=== PATIENT | male | born 1985 | race Caucasian/White ===

== ENCOUNTER 2022-09-17 04:48 | Inpatient (IN) | payer OTHER, SELFPAY ==
[2022-09-17] VITALS (22 sets, daily range): BP systolic 157–195; BP diastolic 91–119; PULSE 53–77; RESP 17–20; TEMP 36.6–37.4; O2SAT 95–100; BMI 26.9
--- NOTE | 2022-09-17 04:50 | ED.GENADULT ---
HPI - General Adult <Contreras DO Javid - Last Filed: 09/19/22 10:24> General Chief complaint: Abdominal Pain Stated complaint: ABD Pain Time Seen by Provider: 09/17/22 04:49 History of Present Illness HPI narrative: 36-year-old male nonsmoker with occasional alcohol use presents with the chief complaint of relatively sudden onset but worsening epigastric and right upper quadrant pain with radiation to the back. He states it is worse with motion, eating and drinking and improves with rest. He is nauseated but denies any vomiting. He denies constipation but has had some loose stools. He denies any fever or chills. Denies any history of the same. He denies any prior surgeries in his abdomen. Related Data Previous Rx's Medication Instructions Recorded lisinopril 20 mg tablet 20 mg PO DAILY 90 days #90 tabs 09/19/22 omeprazole 20 mg capsule,delayed 40 mg PO DAILY #60 caps 09/19/22 release Allergies Allergy/AdvReac Type Severity Reaction Status Date / Time No Known Drug Allergies Allergy Verified 09/18/22 14:58 Review of Systems <Contreras Hua DO - Last Filed: 09/19/22 10:24> Review of Systems Narrative: GENERAL: Denies chills, fatigue, malaise, fever, sweats. HEENT: Denies sinus pain, ear pain, sore throat, difficulty swallowing, dizziness. RESPIRATORY: Denies dyspnea, cough, wheezing, hemoptysis, sputum. CARDIOVASCULAR: Denies chest pain, palpitations, orthopnea, edema, GASTROINTESTINAL: See HPI : Denies dysuria, frequency, incontinence, hematuria, urinary retention. MUSCULOSKELETAL: denies weakness, joint pain, or bony pain SKIN: Denies rash, skin lesions, or other NEUROLOGIC: Denies weakness, headache, numbness, change in speech, confusion, seizures, incoordination. PSYCHIATRIC: No concerning psychosocial issues. 12 point review of systems is negative except for those stated above Patient History <Contreras Hua DO - Last Filed: 09/19/22 10:24> Medical History (Updated 09/17/22 @ 12:34 by Mary Avalos MD) Duodenal ulcer GERD (gastroesophageal reflux disease) Gout Hypertension Family History (Updated 09/17/22 @ 13:04 by Mary Avalos MD) Father Hypertension Gout Mother Rheumatoid arthritis Family/Other Cancer Social History household members: significant other and family Smoking Status: Current every day smoker alcohol intake: current Smoking Status: Unknown if ever smoked Exam <Contreras Hua DO - Last Filed: 09/19/22 10:24> Narrative Exam Narrative: GENERAL: [36] year old patient appears stated age. Well-developed patient, in mild distress. HEAD: Atraumatic. Normocephalic. EYES: Pupils equal round and reactive. Extraocular motions intact. No scleral icterus. No injection or drainage. ENT: Nose without bleeding, purulent drainage. Throat without erythema, tonsillar hypertrophy or exudate. Airway patent. NECK: Trachea midline. Non tender CARDIOVASCULAR: Regular rate and rhythm without murmurs, gallops, or rubs. RESPIRATORY: Clear to auscultation. Breath sounds equal bilaterally. No wheezes, rales, or rhonchi. GASTROINTESTINAL: Abdomen soft, tender in the epigastrium and right upper quadrant, nondistended. EXTREMITIES: No edema or joint tenderness. BACK: Nontender without deformity or crepitance. No flank tenderness. NEURO: AOx3. SKIN: No rash or erythema of visible areas Initial Vital Signs Initial Vital Signs: Vital Signs Temperature 99.4 F 09/17/22 04:57 Pulse Rate 77 09/17/22 04:57 Respiratory Rate 18 09/17/22 04:57 Blood Pressure 173/113 H 09/17/22 04:57 Pulse Oximetry 99 09/17/22 04:57 Oxygen Delivery Method Room Air 09/17/22 04:57 <Brandon Marcano DO - Last Filed: 09/17/22 10:59> Initial Vital Signs Initial Vital Signs: Vital Signs Temperature 99.4 F 09/17/22 04:57 Pulse Rate 77 09/17/22 04:57 Respiratory Rate 18 09/17/22 04:57 Blood Pressure 173/113 H 09/17/22 04:57 Pulse Oximetry 99 09/17/22 04:57 Oxygen Delivery Method Room Air 09/17/22 04:57 Course <Contreras Hua DO - Last Filed: 09/19/22 10:24> Orders Ordered: Acetaminophen (Acetaminophen 325 Mg Tablet) 650 mg PO Q6H PRN PRN Reason: Fever/Mild Pain (1-3) Last Admin: 09/19/22 06:13 Dose: 650 mg Documented By: Admin: 09/17/22 16:27 Dose: 650 mg Documented By: LOUIE Albuterol (Albuterol 2.5 Mg/3 Ml Neb (Adult)) 2.5 mg INH NOW PRN PRN Reason: Coughing, Wheezing, Dyspnea Hydralazine HCl (Hydralazine 20 Mg/Ml Vial) 5 mg IV Q6HR PRN PRN Reason: SBP>180 or DBP>110 Hydromorphone HCl (Hydromorphone 0.5 Mg Inj) 0.5 mg IV Q2H PRN PRN Reason: Pain, Severe (7-10) Last Admin: 09/18/22 12:31 Dose: 0.5 mg Documented By: Admin: 09/18/22 10:34 Dose: 0.5 mg Documented By: Admin: 09/18/22 07:24 Dose: 0.5 mg Documented By: Admin: 09/18/22 02:56 Dose: 0.5 mg Documented By: Admin: 09/17/22 22:46 Dose: 0.5 mg Documented By: Admin: 09/17/22 20:32 Dose: 0.5 mg Documented By: Admin: 09/17/22 18:08 Dose: 0.5 mg Documented By: Admin: 09/17/22 15:05 Dose: 0.5 mg Documented By: Admin: 09/17/22 12:58 Dose: 0.5 mg Documented By: Admin: 09/17/22 09:57 Dose: 0.5 mg Documented By: ALISHA Lisinopril (Lisinopril 20 Mg Tablet) 20 mg PO DAILY [facility] Last Admin: 09/19/22 08:21 Dose: 20 mg Documented By: Admin: 09/18/22 09:41 Dose: 20 mg Documented By: ELICEO Naloxone HCl (Naloxone 0.4 Mg/Ml Vial) 0.2 mg IV Q2MIN PRN PRN Reason: Opiate Reversal Ondansetron HCl (Ondansetron 4 Mg/2 Ml Inj) 4 mg IV Q8HR PRN PRN Reason: Nausea And Vomiting Oxycodone HCl (Oxycodone Ir 5 Mg Tablet) 5 mg PO Q4HR PRN PRN Reason: Pain, Moderate (4-6) Last Admin: 09/19/22 06:13 Dose: 5 mg Documented By: Admin: 09/18/22 19:01 Dose: 5 mg Documented By: TLS Pantoprazole Sodium (Pantoprazole Dr 40 Mg Tablet) 40 mg PO 0700,2100 [facility] Last Admin: 09/19/22 06:10 Dose: 40 mg Documented By: Admin: 09/18/22 21:07 Dose: 40 mg Documented By: AM Discontinued Medications Hydralazine HCl (Hydralazine 20 Mg/Ml Vial) 5 mg IV NOW ONE Stop: 09/17/22 12:30 Last Admin: 09/17/22 12:53 Dose: 5 mg Documented By: TLS Hydralazine HCl (Hydralazine 20 Mg/Ml Vial) 5 mg IV Q6HR PRN PRN Reason: SBP>160 or DBP>100 Last Admin: 09/17/22 18:25 Dose: 5 mg Documented By: LOUIE Hydromorphone HCl (Hydromorphone 0.5 Mg Inj) 0.5 mg IV NOW ONE Stop: 09/17/22 04:57 Last Admin: 09/17/22 05:08 Dose: 0.5 mg Documented By: ENEIDA Hydromorphone HCl (Hydromorphone 0.5 Mg Inj) 0.5 mg IV NOW ONE Stop: 09/17/22 08:09 Last Admin: 09/17/22 08:20 Dose: 0.5 mg Documented By: CTS Sodium Chloride (Normal Saline 0.9%) 1,000 mls @ 1,000 mls/hr IV BOLUS ONE Stop: 09/17/22 05:55 Last Infusion: 09/17/22 05:49 Dose: 0 mls/hr Documented By: Admin: 09/17/22 05:09 Dose: 1,000 mls/hr Documented By: ENEIDA Sodium Chloride (Normal Saline 0.9%) 1,000 mls @ 100 mls/hr IV CONT DANELLE Last Infusion: 09/18/22 14:50 Dose: 0 mls/hr Documented By: Infusion: 09/18/22 12:17 Dose: 100 mls/hr Documented By: Infusion: 09/18/22 11:29 Dose: 0 mls/hr Documented By: Admin: 09/18/22 07:25 Dose: 100 mls/hr Documented By: Infusion: 09/18/22 06:34 Dose: 100 mls/hr Documented By: Admin: 09/17/22 20:34 Dose: 100 mls/hr Documented By: Infusion: 09/17/22 20:32 Dose: 100 mls/hr Documented By: Admin: 09/17/22 10:32 Dose: 100 mls/hr Documented By: LOUIE Lactated Ringer's (Lactated Ringers) 1,000 mls @ 84 mls/hr IV NOW ONE Stop: 09/19/22 03:01 Last Infusion: 09/18/22 16:47 Dose: 0 mls/hr Documented By: Admin: 09/18/22 15:07 Dose: 84 mls/hr Documented By: DEONDRE Lisinopril (Lisinopril 20 Mg Tablet) 20 mg PO NOW ONE Stop: 09/17/22 14:06 Last Admin: 09/17/22 15:02 Dose: 20 mg Documented By: LOUIE Ondansetron HCl (Ondansetron 4 Mg/2 Ml Inj) 4 mg IV NOW ONE Stop: 09/17/22 04:57 Last Admin: 09/17/22 05:09 Dose: 4 mg Documented By: ENEIDA Pantoprazole Sodium (Pantoprazole 40 Mg Vial) 40 mg IV NOW ONE Stop: 09/17/22 08:09 Last Admin: 09/17/22 08:19 Dose: 40 mg Documented By: RAGHAV Pantoprazole Sodium (Pantoprazole 40 Mg Vial) 40 mg IV BID [facility] Last Admin: 09/18/22 09:41 Dose: 40 mg Documented By: Admin: 09/17/22 20:32 Dose: 40 mg Documented By: GREG Potassium Chloride (Potassium Chloride 20 Meq Tab) 40 meq PO NOW ONE Stop: 09/18/22 06:44 Last Admin: 09/18/22 07:21 Dose: 40 meq Documented By: GREG Vital Signs Vital signs: Vital Signs - 8 hr 09/17/22 04:57 09/17/22 05:08 09/17/22 05:08 Temperature 99.4 F Pulse Rate 77 66 Respiratory Rate 18 Blood Pressure 173/113 H 194/116 H Pulse Oximetry 99 96 Oxygen Delivery Method Room Air 09/17/22 05:30 09/17/22 05:30 09/17/22 06:00 Temperature Pulse Rate 60 Respiratory Rate Blood Pressure 157/99 H 194/116 H Pulse Oximetry 97 Oxygen Delivery Method 09/17/22 06:00 09/17/22 06:30 09/17/22 06:30 Temperature Pulse Rate 60 64 Respiratory Rate Blood Pressure 171/101 H Pulse Oximetry 98 98 Oxygen Delivery Method 09/17/22 07:00 09/17/22 07:00 09/17/22 07:30 Temperature Pulse Rate 63 Respiratory Rate Blood Pressure 191/116 H 195/113 H Pulse Oximetry 97 Oxygen Delivery Method 09/17/22 07:30 09/17/22 08:00 09/17/22 08:01 Temperature Pulse Rate 58 L 62 57 L Respiratory Rate Blood Pressure Pulse Oximetry 97 97 97 Oxygen Delivery Method 09/17/22 08:01 09/17/22 08:30 09/17/22 08:30 Temperature Pulse Rate 55 L Respiratory Rate Blood Pressure 180/117 H 183/103 H Pulse Oximetry 95 Oxygen Delivery Method 09/17/22 09:00 09/17/22 09:00 Temperature Pulse Rate 56 L Respiratory Rate Blood Pressure 175/114 H Pulse Oximetry 95 Oxygen Delivery Method <Brandon Marcano, - Last Filed: 09/17/22 10:59> Orders Ordered: Acetaminophen (Acetaminophen 325 Mg Tablet) 650 mg PO Q6H PRN PRN Reason: Fever/Mild Pain (1-3) Last Admin: 09/19/22 06:13 Dose: 650 mg Documented By: Admin: 09/17/22 16:27 Dose: 650 mg Documented By: VM Albuterol (Albuterol 2.5 Mg/3 Ml Neb (Adult)) 2.5 mg INH NOW PRN PRN Reason: Coughing, Wheezing, Dyspnea Hydralazine HCl (Hydralazine 20 Mg/Ml Vial) 5 mg IV Q6HR PRN PRN Reason: SBP>180 or DBP>110 Hydromorphone HCl (Hydromorphone 0.5 Mg Inj) 0.5 mg IV Q2H PRN PRN Reason: Pain, Severe (7-10) Last Admin: 09/18/22 12:31 Dose: 0.5 mg Documented By: Admin: 09/18/22 10:34 Dose: 0.5 mg Documented By: Admin: 09/18/22 07:24 Dose: 0.5 mg Documented By: Admin: 09/18/22 02:56 Dose: 0.5 mg Documented By: Admin: 09/17/22 22:46 Dose: 0.5 mg Documented By: Admin: 09/17/22 20:32 Dose: 0.5 mg Documented By: Admin: 09/17/22 18:08 Dose: 0.5 mg Documented By: Admin: 09/17/22 15:05 Dose: 0.5 mg Documented By: Admin: 09/17/22 12:58 Dose: 0.5 mg Documented By: Admin: 09/17/22 09:57 Dose: 0.5 mg Documented By: ALISHA Lisinopril (Lisinopril 20 Mg Tablet) 20 mg PO DAILY [facility] Last Admin: 09/19/22 08:21 Dose: 20 mg Documented By: Admin: 09/18/22 09:41 Dose: 20 mg Documented By: ELICEO Naloxone HCl (Naloxone 0.4 Mg/Ml Vial) 0.2 mg IV Q2MIN PRN PRN Reason: Opiate Reversal Ondansetron HCl (Ondansetron 4 Mg/2 Ml Inj) 4 mg IV Q8HR PRN PRN Reason: Nausea And Vomiting Oxycodone HCl (Oxycodone Ir 5 Mg Tablet) 5 mg PO Q4HR PRN PRN Reason: Pain, Moderate (4-6) Last Admin: 09/19/22 06:13 Dose: 5 mg Documented By: Admin: 09/18/22 19:01 Dose: 5 mg Documented By: JATIN Pantoprazole Sodium (Pantoprazole Dr 40 Mg Tablet) 40 mg PO 0700,2100 [facility] Last Admin: 09/19/22 06:10 Dose: 40 mg Documented By: Admin: 09/18/22 21:07 Dose: 40 mg Documented By: AM Discontinued Medications Hydralazine HCl (Hydralazine 20 Mg/Ml Vial) 5 mg IV NOW ONE Stop: 09/17/22 12:30 Last Admin: 09/17/22 12:53 Dose: 5 mg Documented By: TLS Hydralazine HCl (Hydralazine 20 Mg/Ml Vial) 5 mg IV Q6HR PRN PRN Reason: SBP>160 or DBP>100 Last Admin: 09/17/22 18:25 Dose: 5 mg Documented By: LOUIE Hydromorphone HCl (Hydromorphone 0.5 Mg Inj) 0.5 mg IV NOW ONE Stop: 09/17/22 04:57 Last Admin: 09/17/22 05:08 Dose: 0.5 mg Documented By: ENEIDA Hydromorphone HCl (Hydromorphone 0.5 Mg Inj) 0.5 mg IV NOW ONE Stop: 09/17/22 08:09 Last Admin: 09/17/22 08:20 Dose: 0.5 mg Documented By: RAGHAV Sodium Chloride (Normal Saline 0.9%) 1,000 mls @ 1,000 mls/hr IV BOLUS ONE Stop: 09/17/22 05:55 Last Infusion: 09/17/22 05:49 Dose: 0 mls/hr Documented By: Admin: 09/17/22 05:09 Dose: 1,000 mls/hr Documented By: ENEIDA Sodium Chloride (Normal Saline 0.9%) 1,000 mls @ 100 mls/hr IV CONT DANELLE Last Infusion: 09/18/22 14:50 Dose: 0 mls/hr Documented By: Infusion: 09/18/22 12:17 Dose: 100 mls/hr Documented By: Infusion: 09/18/22 11:29 Dose: 0 mls/hr Documented By: Admin: 09/18/22 07:25 Dose: 100 mls/hr Documented By: Infusion: 09/18/22 06:34 Dose: 100 mls/hr Documented By: Admin: 09/17/22 20:34 Dose: 100 mls/hr Documented By: Infusion: 09/17/22 20:32 Dose: 100 mls/hr Documented By: Admin: 09/17/22 10:32 Dose: 100 mls/hr Documented By: LOUIE Lactated Ringer's (Lactated Ringers) 1,000 mls @ 84 mls/hr IV NOW ONE Stop: 09/19/22 03:01 Last Infusion: 09/18/22 16:47 Dose: 0 mls/hr Documented By: Admin: 09/18/22 15:07 Dose: 84 mls/hr Documented By: DEONDRE Lisinopril (Lisinopril 20 Mg Tablet) 20 mg PO NOW ONE Stop: 09/17/22 14:06 Last Admin: 09/17/22 15:02 Dose: 20 mg Documented By: LOUIE Ondansetron HCl (Ondansetron 4 Mg/2 Ml Inj) 4 mg IV NOW ONE Stop: 09/17/22 04:57 Last Admin: 09/17/22 05:09 Dose: 4 mg Documented By: ENEIDA Pantoprazole Sodium (Pantoprazole 40 Mg Vial) 40 mg IV NOW ONE Stop: 09/17/22 08:09 Last Admin: 09/17/22 08:19 Dose: 40 mg Documented By: RAGHAV Pantoprazole Sodium (Pantoprazole 40 Mg Vial) 40 mg IV BID DANELLE Last Admin: 09/18/22 09:41 Dose: 40 mg Documented By: Admin: 09/17/22 20:32 Dose: 40 mg Documented By: GREG Potassium Chloride (Potassium Chloride 20 Meq Tab) 40 meq PO NOW ONE Stop: 09/18/22 06:44 Last Admin: 09/18/22 07:21 Dose: 40 meq Documented By: GREG Vital Signs Vital signs: Vital Signs - 8 hr 09/17/22 04:57 09/17/22 05:08 09/17/22 05:08 Temperature 99.4 F Pulse Rate 77 66 Respiratory Rate 18 Blood Pressure 173/113 H 194/116 H Pulse Oximetry 99 96 Oxygen Delivery Method Room Air 09/17/22 05:30 09/17/22 05:30 09/17/22 06:00 Temperature Pulse Rate 60 Respiratory Rate Blood Pressure 157/99 H 194/116 H Pulse Oximetry 97 Oxygen Delivery Method 09/17/22 06:00 09/17/22 06:30 09/17/22 06:30 Temperature Pulse Rate 60 64 Respiratory Rate Blood Pressure 171/101 H Pulse Oximetry 98 98 Oxygen Delivery Method 09/17/22 07:00 09/17/22 07:00 09/17/22 07:30 Temperature Pulse Rate 63 Respiratory Rate Blood Pressure 191/116 H 195/113 H Pulse Oximetry 97 Oxygen Delivery Method 09/17/22 07:30 09/17/22 08:00 09/17/22 08:01 Temperature Pulse Rate 58 L 62 57 L Respiratory Rate Blood Pressure Pulse Oximetry 97 97 97 Oxygen Delivery Method 09/17/22 08:01 09/17/22 08:30 09/17/22 08:30 Temperature Pulse Rate 55 L Respiratory Rate Blood Pressure 180/117 H 183/103 H Pulse Oximetry 95 Oxygen Delivery Method 09/17/22 09:00 07/02/23 09:00 Temperature Pulse Rate 56 L Respiratory Rate Blood Pressure 175/114 H Pulse Oximetry 95 Oxygen Delivery Method Medical Decision Making <Contreras Hua DO - Last Filed: 09/19/22 10:24> Lab Data 09/19/22 05:02 09/19/22 05:02 Labs: Lab Results 09/17/22 09/17/22 09/17/22 Range/Units 05:00 05:00 05:00 WBC 14.4 H (4.5-11.0) X10^3/uL RBC 4.76 (4.5-5.9) X10^6/uL Hgb 15.9 (13.5-17.5) g/dL Hct 45.5 (41-53) % MCV 95.5 (80-100) fL MCH 33.3 (26-34) PG MCHC 34.9 (30-36) % RDW 13.1 (11.6-14.8) % Plt Count 196 (150-400) X10^3/uL Neut % (Auto) Not Reportable Lymph % (Auto) Not Reportable [place] % (Auto) Not Reportable Eos % (Auto) Not Reportable Baso % (Auto) Not Reportable Lymph # (Auto) Not Reportable [place] # (Auto) Not Reportable Baso # (Auto) Not Reportable Total Counted 100 Seg Neutrophils % 86.0 H (38-70) % Band Neutrophils % 1.0 L (3-7) % Lymphocytes % (Manual) 10.0 L (25-45) % Monocytes % (Manual) 2.0 (2-11) % Eosinophils % (Manual) 1.0 L (2-4) % Neutrophils # (Manual) 53414 H (4697-5746) /uL RBC Morphology Normal morphology Sodium 136 L (137-145) mmol/L Potassium 3.8 (3.4-5.1) mmol/L Chloride 104 (98-107) mmol/L Carbon Dioxide 20 L (22-32) mmol/L BUN 15 (9-20) mg/dL Creatinine 0.56 L (0.66-1.25) mg/dL Estimated GFR > 60 (>60) mL/min BUN/Creatinine Ratio 26.8 H (6-22) Glucose 122 H (70-100) mg/dL Calcium 8.4 (8.4-10.2) mg/dL Magnesium 1.6 (1.6-2.3) mg/dL Total Bilirubin 1.2 (0.2-1.3) mg/dL AST 256 H (17-59) IU/L ALT 72 H (<50) IU/L Alkaline Phosphatase 116 (38-126) U/L C-Reactive Protein < 0.5 (<1.0) mg/dL Total Protein 7.7 (6.3-8.2) g/dL Albumin 4.2 (3.5-5.0) g/dL Globulin 3.5 (1.7-4.1) g/dL Albumin/Globulin Ratio 1.2 (1.0-2.8) Lipase 894 H (23-300) U/L Urine RBC (0-5/HPF) Urine WBC (0-5/HPF) Ur Squamous Epith Cells (0-5/HPF) Urine Bacteria (None) Ur Culture Indicated? 09/17/22 Range/Units 05:50 WBC (4.5-11.0) X10^3/uL RBC (4.5-5.9) X10^6/uL Hgb (13.5-17.5) g/dL Hct (41-53) % MCV (80-100) fL MCH (26-34) PG MCHC (30-36) % RDW (11.6-14.8) % Plt Count (150-400) X10^3/uL Neut % (Auto) Lymph % (Auto) [place] % (Auto) Eos % (Auto) Baso % (Auto) Lymph # (Auto) [place] # (Auto) Baso # (Auto) Total Counted Seg Neutrophils % (38-70) % Band Neutrophils % (3-7) % Lymphocytes % (Manual) (25-45) % Monocytes % (Manual) (2-11) % Eosinophils % (Manual) (2-4) % Neutrophils # (Manual) (9698-3536) /uL RBC Morphology Sodium (137-145) mmol/L Potassium (3.4-5.1) mmol/L Chloride (98-107) mmol/L Carbon Dioxide (22-32) mmol/L BUN (9-20) mg/dL Creatinine (0.66-1.25) mg/dL Estimated GFR (>60) mL/min BUN/Creatinine Ratio (6-22) Glucose (70-100) mg/dL Calcium (8.4-10.2) mg/dL Magnesium (1.6-2.3) mg/dL Total Bilirubin (0.2-1.3) mg/dL AST (17-59) IU/L ALT (<50) IU/L Alkaline Phosphatase (38-126) U/L C-Reactive Protein (<1.0) mg/dL Total Protein (6.3-8.2) g/dL Albumin (3.5-5.0) g/dL Globulin (1.7-4.1) g/dL Albumin/Globulin Ratio (1.0-2.8) Lipase (23-300) U/L Urine RBC None seen (0-5/HPF) Urine WBC 0-1/hpf (0-5/HPF) Ur Squamous Epith Cells None seen (0-5/HPF) Urine Bacteria None seen (None) Ur Culture Indicated? Cult not indicated Urine Dip Bedside Urine Glucose Negative Bedside Urine Bilirubin - Negative Bedside Urine Ketone - Negative Urine Specific [place] 1.030 Bedside Urine Occult Blood - Negative Bedside Urine pH 6 Bedside Urine Protein + 30 Bedside Urine Urobilinogen - Negative Bedside Urine Nitrite - Negative Bedside Urine Leukocytes - Negative Esterase Point of care testing: Urine Dip Bedside Urine Glucose Negative Bedside Urine Bilirubin - Negative Bedside Urine Ketone - Negative Urine Specific [place] 1.030 Bedside Urine Occult Blood - Negative Bedside Urine pH 6 Bedside Urine Protein + 30 Bedside Urine Urobilinogen - Negative Bedside Urine Nitrite - Negative Bedside Urine Leukocytes - Negative Esterase MDM Narrative Medical decision making narrative: CC: 36M with epigastric pain Complicating co-morbidities: none known Data collected from: Patient Medical records reviewed: Prior notes reviewed in our EMR Differential considered, but not limited to: Pancreatitis versus gallbladder disease versus liver disease versus bowel obstruction versus other Exam documented above, pertinent findings include: Epigastric pain, right upper quadrant pain, bowel sounds present, patient clearly uncomfortable Lab Test results independently reviewed as above. Pertinent findings: Independently reviewed EKG as above Imaging studies independently reviewed: Disposition: see below, along with detailed discharge instructions that have been reviewed with patient as well as indications for ED re-evaluation and additional outpatient follow up Dr marcano: Received turned over. Review patient's history and physical exam. Patient has a right upper quadrant ultrasound which shows no acute gallbladder pathology however the CT scan does show a duodenal ulcer. Patient also has a leukocytosis. Elevation in his LFTs and also lipase. Could potentially have a pancreatitis component however does not have inflammation of the pancreas noted on the CT scan. Patient's pain has been moderately controlled with pain medication but he does have discomfort whenever he eats or drinks. I did discuss the case with Dr. Avalos. We will admit for further evaluation and treatment. Discussed the case with Dr. Sawyer with General surgery as well. He will see the patient in consultation. Discussed the need for admission with the patient. He expressed understanding and agreement. <Brandon Marcano, DO - Last Filed: 09/17/22 10:59> Lab Data Lab results reviewed: Yes I reviewed the patient's lab results. Labs: Lab Results 09/17/22 09/17/22 09/17/22 Range/Units 05:00 05:00 05:00 WBC 14.4 H (4.5-11.0) X10^3/uL RBC 4.76 (4.5-5.9) X10^6/uL Hgb 15.9 (13.5-17.5) g/dL Hct 45.5 (41-53) % MCV 95.5 (80-100) fL MCH 33.3 (26-34) PG MCHC 34.9 (30-36) % RDW 13.1 (11.6-14.8) % Plt Count 196 (150-400) X10^3/uL Neut % (Auto) Not Reportable Lymph % (Auto) Not Reportable [place] % (Auto) Not Reportable Eos % (Auto) Not Reportable Baso % (Auto) Not Reportable Lymph # (Auto) Not Reportable [place] # (Auto) Not Reportable Baso # (Auto) Not Reportable Total Counted 100 Seg Neutrophils % 86.0 H (38-70) % Band Neutrophils % 1.0 L (3-7) % Lymphocytes % (Manual) 10.0 L (25-45) % Monocytes % (Manual) 2.0 (2-11) % Eosinophils % (Manual) 1.0 L (2-4) % Neutrophils # (Manual) 62670 H (7899-1074) /uL RBC Morphology Normal morphology Sodium 136 L (137-145) mmol/L Potassium 3.8 (3.4-5.1) mmol/L Chloride 104 (98-107) mmol/L Carbon Dioxide 20 L (22-32) mmol/L BUN 15 (9-20) mg/dL Creatinine 0.56 L (0.66-1.25) mg/dL Estimated GFR > 60 (>60) mL/min BUN/Creatinine Ratio 26.8 H (6-22) Glucose 122 H (70-100) mg/dL Calcium 8.4 (8.4-10.2) mg/dL Magnesium 1.6 (1.6-2.3) mg/dL Total Bilirubin 1.2 (0.2-1.3) mg/dL AST 256 H (17-59) IU/L ALT 72 H (<50) IU/L Alkaline Phosphatase 116 (38-126) U/L C-Reactive Protein < 0.5 (<1.0) mg/dL Total Protein 7.7 (6.3-8.2) g/dL Albumin 4.2 (3.5-5.0) g/dL Globulin 3.5 (1.7-4.1) g/dL Albumin/Globulin Ratio 1.2 (1.0-2.8) Lipase 894 H (23-300) U/L Urine RBC (0-5/HPF) Urine WBC (0-5/HPF) Ur Squamous Epith Cells (0-5/HPF) Urine Bacteria (None) Ur Culture Indicated? 09/17/22 Range/Units 05:50 WBC (4.5-11.0) X10^3/uL RBC (4.5-5.9) X10^6/uL Hgb (13.5-17.5) g/dL Hct (41-53) % MCV (80-100) fL MCH (26-34) PG MCHC (30-36) % RDW (11.6-14.8) % Plt Count (150-400) X10^3/uL Neut % (Auto) Lymph % (Auto) [place] % (Auto) Eos % (Auto) Baso % (Auto) Lymph # (Auto) [place] # (Auto) Baso # (Auto) Total Counted Seg Neutrophils % (38-70) % Band Neutrophils % (3-7) % Lymphocytes % (Manual) (25-45) % Monocytes % (Manual) (2-11) % Eosinophils % (Manual) (2-4) % Neutrophils # (Manual) (4530-4056) /uL RBC Morphology Sodium (137-145) mmol/L Potassium (3.4-5.1) mmol/L Chloride (98-107) mmol/L Carbon Dioxide (22-32) mmol/L BUN (9-20) mg/dL Creatinine (0.66-1.25) mg/dL Estimated GFR (>60) mL/min BUN/Creatinine Ratio (6-22) Glucose (70-100) mg/dL Calcium (8.4-10.2) mg/dL Magnesium (1.6-2.3) mg/dL Total Bilirubin (0.2-1.3) mg/dL AST (17-59) IU/L ALT (<50) IU/L Alkaline Phosphatase (38-126) U/L C-Reactive Protein (<1.0) mg/dL Total Protein (6.3-8.2) g/dL Albumin (3.5-5.0) g/dL Globulin (1.7-4.1) g/dL Albumin/Globulin Ratio (1.0-2.8) Lipase (23-300) U/L Urine RBC None seen (0-5/HPF) Urine WBC 0-1/hpf (0-5/HPF) Ur Squamous Epith Cells None seen (0-5/HPF) Urine Bacteria None seen (None) Ur Culture Indicated? Cult not indicated Urine Dip Bedside Urine Glucose Negative Bedside Urine Bilirubin - Negative Bedside Urine Ketone - Negative Urine Specific [place] 1.030 Bedside Urine Occult Blood - Negative Bedside Urine pH 6 Bedside Urine Protein + 30 Bedside Urine Urobilinogen - Negative Bedside Urine Nitrite - Negative Bedside Urine Leukocytes - Negative Esterase Point of care testing: Urine Dip Bedside Urine Glucose Negative Bedside Urine Bilirubin - Negative Bedside Urine Ketone - Negative Urine Specific [place] 1.030 Bedside Urine Occult Blood - Negative Bedside Urine pH 6 Bedside Urine Protein + 30 Bedside Urine Urobilinogen - Negative Bedside Urine Nitrite - Negative Bedside Urine Leukocytes - Negative Esterase Imaging Data CT scan - abdomen/pelvis: Radiologist's Impression: PROCEDURE:? CT ABDOMEN PELVIS W CON ? INDICATIONS:? severe abdominal pain ? TECHNIQUE:? After the administration of intravenous contrast, axial sections acquired from the lung bases to the pubic symphysis.? Coronal and sagittal reformats were performed.? For radiation dose reduction, the following was used:? automated exposure control, adjustment of mA and/or kV according to patient size.? ? COMPARISON:? [facility], , US ABDOMEN LIMITED, 09/17/2022, 5:24. ? FINDINGS:? Image quality:? Excellent.? ? Lung bases:? Unremarkable. Heart:? No significant findings. ? ABDOMEN: Liver:? Probable steatosis.? ? Gallbladder:? Unremarkable.? ? Biliary ducts:? Unremarkable.? ? Pancreas:? Unremarkable.? ? Spleen:? Unremarkable.? ? Adrenal Glands:? Unremarkable.? ? Kidneys and Ureters:? 2.1 cm left renal cystic lesion with indeterminate attenuation on the lateral margin.? No hydronephrosis.? No nephrolithiasis. ? Stomach and Bowel: Colonic diverticulosis without evidence of diverticulitis.? Wall thickening of the 2nd and 3rd segments of the duodenum.? There is a small region of duodenal wall along the medial aspect of segment 2 which demonstrates no enhancement (series 2, image 37). Peritoneum:? Free fluid adjacent to the affected segments of the duodenum. ? Ventral Wall: ? No hernias.? Abdominal Nodes:? No retroperitoneal or mesenteric adenopathy by size criteria.? Vessels:? Aorta and inferior vena cava are normal in size.? ? PELVIS: Pelvic Organs:? Unremarkable.? ? Bladder:? Unremarkable.? ? Pelvic Nodes: No enlarged lymph nodes.? Miscellaneous: No hernias are seen. ? ? ? Bones:? Unremarkable.? IMPRESSION:? Inflammatory changes surrounding the 2nd and 3rd portions of the duodenum, with associated fat stranding and free fluid.? Additionally, a short segment of the medial wall of segment 2 demonstrates no enhancement, concerning for an ulcer. ? Indeterminate left renal lesion measuring 2.1 cm, probably a hemorrhagic/proteinaceous cyst in this age group.? Confirm with nonurgent renal ultrasound. ? Colonic diverticulosis without evidence of diverticulitis. ? Agree with preliminary report.? US - abdomen: Radiologist's Impression: PROCEDURE:? US ABDOMEN LIMITED ? INDICATIONS:? Epigastric pain with radiation to the back ? TECHNIQUE:? Real-time scanning was performed of the abdominal and retroperitoneal organs, with image documentation.? ? COMPARISON:? None. ? FINDINGS:? ? Liver:? Echogenic liver with loss of portal wall echogenicity. ? Gallbladder:? Unremarkable? ? Biliary ducts:? Intrahepatic bile ducts are non-dilated.? Extrahepatic bile duct caliber measures 5 mm.? Normal is 6-7 mm or less in diameter, or 10 mm or less post-cholecystectomy.? ? Miscellaneous:? No free abdominal fluid.? ? ? IMPRESSION:? Unremarkable sonographic appearance of the gallbladder. MDM Narrative Medical decision making narrative: CC: 36M with epigastric pain Complicating co-morbidities: none known Data collected from: Patient Medical records reviewed: Prior notes reviewed in our EMR Differential considered, but not limited to: Pancreatitis versus gallbladder disease versus liver disease versus bowel obstruction versus other Exam documented above, pertinent findings include: Epigastric pain, right upper quadrant pain, bowel sounds present, patient clearly uncomfortable Lab Test results independently reviewed as above. Pertinent findings: Independently reviewed EKG as above Imaging studies independently reviewed: Scores Used: MIPS Elements: Consultations: Treatments: Re-evaluations: Discussion: Disposition: see below, along with detailed discharge instructions that have been reviewed with patient as well as indications for ED re-evaluation and additional outpatient follow up Dr marcano: Received turned over. Review patient's history and physical exam. Patient has a right upper quadrant ultrasound which shows no acute gallbladder pathology however the CT scan does show a duodenal ulcer. Patient also has a leukocytosis. Elevation in his LFTs and also lipase. Could potentially have a pancreatitis component however does not have inflammation of the pancreas noted on the CT scan. Patient's pain has been moderately controlled with pain medication but he does have discomfort whenever he eats or drinks. I did discuss the case with Dr. Avalos. We will admit for further evaluation and treatment. Discussed the case with Dr. Sawyer with General surgery as well. He will see the patient in consultation. Discussed the need for admission with the patient. He expressed understanding and agreement. Discharge Plan Departure Patient Disposition: Admitted as Observation Clinical Impression: Duodenal ulcer Admit Date/Time: 09/17/22 09:33 Admit Provider: Mary Avalos
--- NOTE | 2022-09-17 04:57 | DI.US.S_ITS ---
PROCEDURE: US ABDOMEN LIMITED INDICATIONS: Epigastric pain with radiation to the back TECHNIQUE: Real-time scanning was performed of the abdominal and retroperitoneal organs, with image documentation. COMPARISON: None. FINDINGS: Liver: Echogenic liver with loss of portal wall echogenicity. Gallbladder: Unremarkable Biliary ducts: Intrahepatic bile ducts are non-dilated. Extrahepatic bile duct caliber measures 5 mm. Normal is 6-7 mm or less in diameter, or 10 mm or less post-cholecystectomy. Miscellaneous: No free abdominal fluid. IMPRESSION: Unremarkable sonographic appearance of the gallbladder. Dictated by: Timothy Tate M.D. on 09/17/2022 at 8:43 Approved by: Timothy Tate M.D. on 09/17/2022 at 8:44
[2022-09-17] MEDS: HYDROMORPHONE 0.5 MG INJ IV ×8 (05:08→22:46)
[2022-09-17] MEDS: SODIUM CHLORIDE 0.9% 1,000 ML 1000 ML IV (05:09)
[2022-09-17] MEDS: ONDANSETRON 4 MG/2 ML INJ IV (05:09)
[2022-09-17 05:49] LABS: Alanine Aminotransferase 72 IU/L (<50); Albumin 4.2 g/dL (3.5-5.0); Albumin Globulin Ratio 1.2 (1.0-2.8); Alkaline Phosphatase 116 U/L (38-126); BUN Creatinine Ratio 26.8 (6-22); Bilirubin Total 1.2 mg/dL (0.2-1.3); Blood Urea Nitrogen 15 mg/dL (9-20); Calcium 8.4 mg/dL (8.4-10.2); Carbon Dioxide 20 mmol/L (22-32); Chloride 104 mmol/L (98-107); Estimated Glomerular Filt Rate > 60 mL/min (>60); Globulin 3.5 g/dL (1.7-4.1); Glucose 122 mg/dL (70-100); Lipase 894 U/L (23-300); Magnesium 1.6 mg/dL (1.6-2.3); Total Protein 7.7 g/dL (6.3-8.2)
[2022-09-17 05:50] LABS: HEMOLYSIS 81 (0-50)
[2022-09-17 05:51] LABS: Aspartate Aminotransferase 256 IU/L (17-59); Potassium 3.8 mmol/L (3.4-5.1)
[2022-09-17 05:53] LABS: Sodium 136 mmol/L (137-145)
[2022-09-17 06:09] LABS: Platelet Count 196 X10^3/uL (150-400); White Blood Cell Count 14.4 X10^3/uL (4.5-11.0)
--- NOTE | 2022-09-17 06:10 | DI.CT.S_ITS ---
PROCEDURE: CT ABDOMEN PELVIS W CON INDICATIONS: severe abdominal pain TECHNIQUE: After the administration of intravenous contrast, axial sections acquired from the lung bases to the pubic symphysis. Coronal and sagittal reformats were performed. For radiation dose reduction, the following was used: automated exposure control, adjustment of mA and/or kV according to patient size. COMPARISON: [facility], , US ABDOMEN LIMITED, 09/17/2022, 5:24. FINDINGS: Image quality: Excellent. Lung bases: Unremarkable. Heart: No significant findings. ABDOMEN: Liver: Probable steatosis. Gallbladder: Unremarkable. Biliary ducts: Unremarkable. Pancreas: Unremarkable. Spleen: Unremarkable. Adrenal Glands: Unremarkable. Kidneys and Ureters: 2.1 cm left renal cystic lesion with indeterminate attenuation on the lateral margin. No hydronephrosis. No nephrolithiasis. Stomach and Bowel: Colonic diverticulosis without evidence of diverticulitis. Wall thickening of the 2nd and 3rd segments of the duodenum. There is a small region of duodenal wall along the medial aspect of segment 2 which demonstrates no enhancement (series 2, image 37). Peritoneum: Free fluid adjacent to the affected segments of the duodenum. Ventral Wall: No hernias. Abdominal Nodes: No retroperitoneal or mesenteric adenopathy by size criteria. Vessels: Aorta and inferior vena cava are normal in size. PELVIS: Pelvic Organs: Unremarkable. Bladder: Unremarkable. Pelvic Nodes: No enlarged lymph nodes. Miscellaneous: No hernias are seen. Bones: Unremarkable. IMPRESSION: Inflammatory changes surrounding the 2nd and 3rd portions of the duodenum, with associated fat stranding and free fluid. Additionally, a short segment of the medial wall of segment 2 demonstrates no enhancement, concerning for an ulcer. Indeterminate left renal lesion measuring 2.1 cm, probably a hemorrhagic/proteinaceous cyst in this age group. Confirm with nonurgent renal ultrasound. Colonic diverticulosis without evidence of diverticulitis. Agree with preliminary report. Dictated by: Timothy Tate M.D. on 09/17/2022 at 7:52 Approved by: Timothy Tate M.D. on 09/17/2022 at 7:56
[2022-09-17 06:30] LABS: Add Manual Diff / Slide Review YES; Hematocrit 45.5 % (41-53); Hemoglobin 15.9 g/dL (13.5-17.5); Mean Corpuscular HGB Conc 34.9 % (30-36); Mean Corpuscular Hemoglobin 33.3 PG (26-34); Mean Corpuscular Volume 95.5 fL (80-100); Red Blood Cell Count 4.76 X10^6/uL (4.5-5.9); Red Cell Distribution Width 13.1 % (11.6-14.8)
[2022-09-17 06:41] LABS: Bacteria Urine None Seen; RBC Urine None Seen (0-5/HPF); Squamous Epithelial Cell Urine None Seen (0-5/HPF); WBC Urine 0-1/HPF (0-5/HPF)
[2022-09-17 06:42] LABS: Culture Indicated Urine Cult Not Indicated
[2022-09-17 06:47] LABS: Neutrophils Absolute Manual 12528 /uL (3000-5900); RBC Morphology Normal Morphology; Total Cells Counted 100
[2022-09-17] MEDS: PANTOPRAZOLE 40 MG VIAL IV ×2 (08:19→20:32)
[2022-09-17] MEDS: SODIUM CHLORIDE 0.9% 1,000 ML 100 ML IV ×2 (10:32→20:34)
--- NOTE | 2022-09-17 12:27 | PM.HP.1 ---
History of Present Illness History of Present Illness Chief complaint: ABD Pain Narrative: 36-year-old male with history of GERD, hypertension, and gout who presented to the emergency department early this morning with sudden onset of right upper quadrant/epigastric pain and several liquid stools. He noted the abdominal pain radiated to his back. He noted it was worse with movement, eating and drinking. It improved with rest. He has had some nausea but no emesis. No fevers or chills. On arrival, temp was 99.4?, heart rate 77, BP 173/113, O2 sats 99% in room air. Blood pressures have remained quite hypertensive since arrival. Labs revealed a white blood cell count of 14.4, sodium 136, potassium 3.8, chloride 104, bicarb 20, BUN 15, creatinine 0.56, glucose 122. Magnesium was normal, total bilirubin normal at 1.2. AST elevated at 256. ALT elevated at 72. Alkaline phosphatase normal at 116. Lipase elevated at 894. UA was within normal limits. Abdominal ultrasound was performed which showed a normal appearance of the gallbladder. Normal intrahepatic bile ducts. Normal extrahepatic bile ducts. Liver was echogenic with loss of portal wall echogenicity. CT of the abdomen/pelvis revealed inflammatory change surrounding the 2nd and 3rd portions of the duodenum with associated fat stranding and free fluid. Additionally there was a short segment of the medial wall of segment 2 that demonstrated no enhancement, concerning for an ulcer. There was an indeterminate left renal lesion measuring 2.1 cm felt likely to be a hemorrhagic or proteinaceous cyst. Recommendation was for non urgent renal ultrasound. Colonic diverticulosis was noted without evidence of diverticulitis. In the emergency department patient received 2 doses of IV hydromorphone, 1 L of normal saline, Zofran 4 mg IV, and Protonix 40 mg IV. Admission was recommended. Risk factors for peptic ulcer disease: Patient reports he takes ibuprofen 2-3 days a week. He is a half pack per day smoker. He also drinks 2 alcoholic beverages daily. He does report he takes omeprazole daily with good control of his reflux symptoms. He reports 3-4 years ago when he was living in [place], his physician wanted to obtain an EGD, but his insurance would not cover it. He states since then he has been managing his symptoms with the omeprazole. He does have an appointment to establish care with a PCP in mid September (September 29). He additionally reports that he has had a 5-10 lb explain weight loss over the past couple of months. He lost 20 lb when he switched to a vegan diet 2 years ago and decrease his fatty food intake. He is had decreased appetite, decreased intake. He also reports he has had loose stools over the last 2 weeks. Typically he alternates between constipation and diarrhea. He currently complains of pain mostly in his mid back. No abdominal pain presently. He has been having nausea and dizziness each morning recently. He states it takes a couple of hours before those symptoms resolve. [facility] Medical History (Updated 09/17/22 @ 12:34 by Mary Avalos MD) Duodenal ulcer GERD (gastroesophageal reflux disease) Gout Hypertension Family History (Updated 09/17/22 @ 13:04 by Mary Avalos MD) Father Hypertension Gout Mother Rheumatoid arthritis Family/Other Cancer Social History household members: significant other and family Smoking Status: Current every day smoker alcohol intake: current Comment: Patient smokes 1/2 pack per day of cigarettes. Drinks 2 alcoholic beverages daily. He also smokes marijuana daily. 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 Meds Home Medications and Allergies Home Medications Medication Instructions Recorded Confirmed Type No Known Home Medications 05/29/22 05/29/22 History colchicine 0.6 mg capsule 0.6 mg PO DAILY #20 caps 05/29/22 05/29/22 Rx Allergies Allergy/AdvReac Type Severity Reaction Status Date / Time No Known Drug Allergies Allergy Unverified 05/29/22 09:52 Review of Systems Review of Systems Narrative: All other systems were reviewed negative Exam Vital Signs (past 8 hours): - 09/17/22 04:57 09/17/22 05:08 09/17/22 05:08 Temperature 99.4 F Pulse Rate 77 66 Respiratory Rate 18 Blood Pressure 173/113 H 194/116 H Pulse Oximetry 99 96 Oxygen Delivery Method Room Air Oxygen Flow Rate 09/17/22 05:30 09/17/22 05:30 09/17/22 06:00 Temperature Pulse Rate 60 Respiratory Rate Blood Pressure 157/99 H 194/116 H Pulse Oximetry 97 Oxygen Delivery Method Oxygen Flow Rate 09/17/22 06:00 09/17/22 06:30 09/17/22 06:30 Temperature Pulse Rate 60 64 Respiratory Rate Blood Pressure 171/101 H Pulse Oximetry 98 98 Oxygen Delivery Method Oxygen Flow Rate 09/17/22 07:00 09/17/22 07:00 09/17/22 07:30 Temperature Pulse Rate 63 Respiratory Rate Blood Pressure 191/116 H 195/113 H Pulse Oximetry 97 Oxygen Delivery Method Oxygen Flow Rate 09/17/22 07:30 09/17/22 08:00 09/17/22 08:01 Temperature Pulse Rate 58 L 62 57 L Respiratory Rate Blood Pressure Pulse Oximetry 97 97 97 Oxygen Delivery Method Oxygen Flow Rate 09/17/22 08:01 09/17/22 08:30 09/17/22 08:30 Temperature Pulse Rate 55 L Respiratory Rate Blood Pressure 180/117 H 183/103 H Pulse Oximetry 95 Oxygen Delivery Method Oxygen Flow Rate 09/17/22 09:00 09/17/22 09:00 09/17/22 09:37 Temperature Pulse Rate 56 L 59 L Respiratory Rate Blood Pressure 175/114 H Pulse Oximetry 95 100 Oxygen Delivery Method Oxygen Flow Rate 09/17/22 09:38 09/17/22 09:38 09/17/22 10:00 Temperature Pulse Rate 59 L Respiratory Rate Blood Pressure 194/119 H 189/105 H Pulse Oximetry 99 Oxygen Delivery Method Oxygen Flow Rate 09/17/22 10:00 09/17/22 10:00 Temperature 97.8 F Pulse Rate 55 L 53 L Respiratory Rate 17 Blood Pressure 188/115 H Pulse Oximetry 98 99 Oxygen Delivery Method Oxygen Flow Rate 0 Oxygen Delivery Method Room Air Oxygen Flow Rate 0 Narrative Exam Narrative: GEN: Adult male, Alert and oriented x3, very soft-spoken, no acute distress HEENT: Normocephalic, face symmetric, pupils equal round reactive to light, extraocular movements intact, sclerae anicteric, conjunctiva clear, nares patent, oropharynx reveals an intact soft and hard palate with moist mucous membranes, dentition is fair NECK: Supple, no lymphadenopathy, thyroid without enlargement or nodularity, carotids no bruits CHEST: Respiratory excursions symmetric, clear to auscultation bilaterally CV: Regular rate and rhythm, no murmurs, rubs, gallops, PMI nondisplaced ABD: Soft, nontender, nondistended, bowel sounds present in all 4 quadrants, no organomegaly or masses appreciated EXTR: Warm, well perfused, no clubbing/cyanosis/edema SKIN: Warm and dry, without rash NEURO: Alert and oriented x3, grossly intact PSYCH: Mood and affect is within normal limits, judgment and insight are appropriate Objective Labs 09/17/22 05:00 09/17/22 05:00 Labs: Laboratory Results - last 24 hr 09/17/22 09/17/22 09/17/22 05:00 05:00 05:50 WBC 14.4 H RBC 4.76 Hgb 15.9 Hct 45.5 MCV 95.5 MCH 33.3 MCHC 34.9 RDW 13.1 Plt Count 196 Neut % (Auto) Not Reportable Lymph % (Auto) Not Reportable [place] % (Auto) Not Reportable Eos % (Auto) Not Reportable Baso % (Auto) Not Reportable Lymph # (Auto) Not Reportable [place] # (Auto) Not Reportable Baso # (Auto) Not Reportable Total Counted 100 Seg Neutrophils % 86.0 H Band Neutrophils % 1.0 L Lymphocytes % (Manual) 10.0 L Monocytes % (Manual) 2.0 Eosinophils % (Manual) 1.0 L Neutrophils # (Manual) 68481 H RBC Morphology Normal morphology Sodium 136 L Potassium 3.8 Chloride 104 Carbon Dioxide 20 L BUN 15 Creatinine 0.56 L Estimated GFR > 60 BUN/Creatinine Ratio 26.8 H Glucose 122 H Calcium 8.4 Magnesium 1.6 Total Bilirubin 1.2 AST 256 H ALT 72 H Alkaline Phosphatase 116 Total Protein 7.7 Albumin 4.2 Globulin 3.5 Albumin/Globulin Ratio 1.2 Lipase 894 H Urine RBC None seen Urine WBC 0-1/hpf Ur Squamous Epith Cells None seen Urine Bacteria None seen Ur Culture Indicated? Cult not indicated Assessment & Plan Assessment & Plan narrative: 1. Abdominal pain with CT imaging findings concerning for duodenal ulcer Patient will be admitted for further evaluation. He will be NPO now for possible EGD later today. I did advise that his severe hypertension may prevent him from being able to have a scope today, but will defer that to General surgery and anesthesia. Place on IV Protonix b.i.d.. He will need to discontinue NSAID use and likely discontinue alcohol use. 2. Elevated lipase Lipase was elevated at 894. No imaging findings of pancreatitis. Will recheck in the morning. Will also check a CRP. 3. Uncontrolled hypertension Will add hydralazine IV for now. He is prescribed lisinopril 20 mg daily but had not been taking it due to having no insurance and no primary care provider. Depending on whether he will have an EGD today versus tomorrow, will add some oral antihypertensives as well. Advised he will likely need more than just 20 mg of lisinopril daily. He expresses understanding. 4. Leukocytosis Likely reactive. No evidence for infection. 5. Hyponatremia Mild at 136. 6. Transaminitis AST was 256, ALT 72. No obstruction or abnormality seen on imaging. Will recheck in the morning. 7. Tobacco dependence He declines a nicotine patch at this time. 8. Daily alcohol use He reports 2 alcoholic beverages nightly. At low risk for withdrawal. Code status Full Prophylaxis Low Yoselin score Disposition Admit to observation status, acute care. Surrogate decision maker: Oziel Bhatti, Life partner
--- NOTE | 2022-09-17 12:33 | CM.DANOTE ---
Initial Discharge Assessment Note: Case reviewed and met with patient; introduced self and role. Payer: [facility] and self pay PCP: Khadar Morales 36 year old admitted with epigastric pain yesterday and diagnosed with duodenal ulcer. 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 Plan: When medically cleared discharge back to his RV. No discharge needs identified at this point. [facility] Discharge Planning/Care Management CM Discharge Assessment Start: 09/17/22 12:32 Freq: Status: Active Protocol: Document 09/17/22 12:32 (Rec: 09/17/22 12:33 [id number]) Discharge Planning Assessment Assigned Technical Support Analyst Kika Vázquez RN/DCP Advance Directives? 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 Household Members significant other,family Type of transporation used prior to Drives own vehicle admit Independent with ADL's Yes Is patient alert and oriented? Yes Caregiver for Another No Barriers to Discharge No Discharge Plan Home Referrals Initiated None needed Review Status In Process Next Review Type Continued Stay Review
[2022-09-17 12:51] LABS: C-Reactive Protein Quant < 0.5 mg/dL (<1.0)
[2022-09-17] MEDS: HYDRALAZINE 20 MG/ML VIAL 5 MG IV ×2 (12:53→18:25)
[2022-09-17] MEDS: lisinopriL 20 MG TABLET PO (15:02)
[2022-09-17] MEDS: ACETAMINOPHEN 325 MG TABLET 650 MG PO (16:27)
[2022-09-18] VITALS (15 sets, daily range): BP systolic 107–152; BP diastolic 61–93; PULSE 57–86; RESP 12–20; TEMP 36.1–36.9; O2SAT 94–100; BMI 26.9
--- NOTE | 2022-09-18 | PATH_ITS ---
[facility] Accession Number: [id number] No. of containers..03 Tissue . 01 Material submitted: . PART A: duodenum - DUODENAL BIOPSY PART B: duodenum bulb - DUODENAL BULB PART C: gastrointestinal site - ANTRUM . 01 Diagnosis: A. Duodenum, Biopsy: Duodenal mucosa with no diagnostic abnormality. Negative for active inflammation, features of sprue, dysplasia, or malignancy. . B. Duodenum, Bulb, Biopsy: Antral-type mucosa with mild chronic gastritis. Negative for Helicobacter by immunohistochemistry. Negative for intestinal metaplasia. Negative for dysplasia and malignancy. . C. Stomach, Antrum, Biopsy: Antral mucosa with mild chronic gastritis and mild reactive gastropathy. Negative for Helicobacter by immunohistochemistry. Negative for intestinal metaplasia. Negative for dysplasia and malignancy. . [facility] 09/26/2022 1846 Local . 01 Electronically signed: . Nina Reynolds MD, Pathologist NPI- [id number] . 01 Gross description: . Part A: DUODENAL BIOPSY: Received in formalin is 4 fragment(s) of [place], soft tissue measuring 0.4 x 0.3 x 0.2 cm to 0.2 x 0.1 x 0.1 cm submitted entirely in 1 cassette(s) Part B: DUODENAL BULB: Received in formalin is 2 fragment(s) of [place], soft tissue measuring 0.5 x 0.3 x 0.2 cm to 0.2 x 0.2 x 0.1 cm submitted entirely in 1 cassette(s) Part C: ANTRUM: Received in formalin is 2 fragment(s) of church[place], soft tissue measuring 0.6 x 0.4 x 0.2 cm to 0.4 x 0.3 x 0.1 cm submitted entirely in 1 cassette(s) /[facility] 09/25/[address] [place] [address] . 01 Microscopic: . B. An immunohistochemical stain was performed to evaluate for Helicobacter organisms and is negative. The control stain showed appropriate reactivity. . C. An immunohistochemical stain was performed to evaluate for Helicobacter organisms and is negative. The control stain showed appropriate reactivity. . * This test was developed and its performance characteristics determined by [facility]. It has not been cleared or approved by the U.S. Food and Drug Administration. The FDA has determined that such clearance or approval is not necessary. This test is used for clinical purposes. It should not be regarded as investigational or for research. . 01 Pathologist provided ICD-10: R10.9 . 01 CPT . 168361, 539878, 659769, [id number] Specimen Comment: A courtesy copy of this report has been sent to [phone] Performed at: 01 [facility] [address] [place] [address], [place], [place] [id number] MD Prakash Tijerina MD Phone: [phone]
[2022-09-18] MEDS: HYDROMORPHONE 0.5 MG INJ IV ×4 (02:56→12:31)
[2022-09-18 05:49] LABS: Add Manual Diff / Slide Review NO; Basophils Absolute Auto 0 /uL (0-100); Basophils Percent Auto 0.4 % (0-2); Eosinophils Absolute Auto 200 /uL (0-450); Eosinophils Percent Auto 1.6 % (2-4); Hematocrit 42.5 % (41-53); Hemoglobin 15.1 g/dL (13.5-17.5); Lymphocytes Absolute Auto 1400 /uL (1100-4500); Lymphocytes Percent Auto 13.6 % (25-40); Mean Corpuscular HGB Conc 35.5 % (30-36); Mean Corpuscular Hemoglobin 33.9 PG (26-34); Mean Corpuscular Volume 95.4 fL (80-100); Monocytes Absolute Auto 900 /uL (0-900); Monocytes Percent Auto 9.1 % (3-14); Neutrophils Absolute Auto 7600 /uL (1500-7000); Neutrophils Percent Auto 75.3 % (50-75); Platelet Count 139 X10^3/uL (150-400); Red Blood Cell Count 4.46 X10^6/uL (4.5-5.9); Red Cell Distribution Width 13.3 % (11.6-14.8); White Blood Cell Count 10.1 X10^3/uL (4.5-11.0)
[2022-09-18 06:04] LABS: Alanine Aminotransferase 54 IU/L (<50); Albumin 3.8 g/dL (3.5-5.0); Albumin Globulin Ratio 1.1 (1.0-2.8); Alkaline Phosphatase 93 U/L (38-126); Aspartate Aminotransferase 92 IU/L (17-59); Bilirubin Total 2.8 mg/dL (0.2-1.3); Blood Urea Nitrogen 3 mg/dL (9-20); Calcium 8.1 mg/dL (8.4-10.2); Carbon Dioxide 26 mmol/L (22-32); Chloride 103 mmol/L (98-107); Estimated Glomerular Filt Rate > 60 mL/min (>60); Globulin 3.4 g/dL (1.7-4.1); Glucose 103 mg/dL (70-100); HEMOLYSIS 16 (0-50); Potassium 3.3 mmol/L (3.4-5.1); Sodium 135 mmol/L (137-145); Total Protein 7.2 g/dL (6.3-8.2)
[2022-09-18 06:06] LABS: C-Reactive Protein Quant 4.9 mg/dL (<1.0); Lipase 316 U/L (23-300)
[2022-09-18] MEDS: POTASSIUM CHLORIDE 20 MEQ TAB 40 MEQ PO (07:21)
[2022-09-18] MEDS: SODIUM CHLORIDE 0.9% 1,000 ML 100 ML IV (07:25)
[2022-09-18] MEDS: PANTOPRAZOLE 40 MG VIAL IV (09:41)
[2022-09-18] MEDS: lisinopriL 20 MG TABLET PO (09:41)
--- NOTE | 2022-09-18 10:50 | P.PN_ITS ---
Subjective Subjective Interval history: 36 M admitted with abdominal pain, probably due to pancreatitis with imaging notable for probable duodenal ulcer. He is pending EGD today. Has not had a bowel movement in a couple of days, last was Sunday and was more diarrhea but denies melena or BRBPR. Used quite a bit of pain medication overnight, but reports improvement this morning awaiting EGD. Exam Vital Signs (past 8 hours): - 09/18/22 03:00 09/18/22 05:41 09/18/22 07:00 Temperature 97.5 F L 98.5 F Pulse Rate 71 64 Respiratory Rate 20 18 Blood Pressure 148/86 H 126/75 Pulse Oximetry 98 98 98 Oxygen Delivery Method Room Air Oxygen Flow Rate 0 0 0 09/18/22 08:43 09/18/22 09:41 Temperature 97.6 F Pulse Rate 66 Respiratory Rate 17 Blood Pressure 150/90 H 150/90 H Pulse Oximetry 97 Oxygen Delivery Method Oxygen Flow Rate 0 Oxygen Delivery Method Room Air Oxygen Flow Rate 0 Narrative Exam Narrative: GEN: Adult male, Alert and oriented x3, very soft-spoken, no acute distress HEENT: Normocephalic, face symmetric, pupils equal round reactive to light, extraocular movements intact, sclerae anicteric, conjunctiva clear, nares patent, oropharynx reveals an intact soft and hard palate with moist mucous membranes, dentition is fair NECK: Supple, no lymphadenopathy, thyroid without enlargement or nodularity, carotids no bruits CHEST: Respiratory excursions symmetric, clear to auscultation bilaterally CV: Regular rate and rhythm, no murmurs, rubs, gallops, PMI nondisplaced ABD: Soft, mild epigastric tenderness, no distension. EXTR: Warm, well perfused, no clubbing/cyanosis/edema SKIN: Warm and dry, without rash NEURO: Alert and oriented x3, grossly intact PSYCH: Mood and affect is within normal limits, judgment and insight are appropriate Objective Labs 09/18/22 05:14 09/18/22 05:14 Labs: Laboratory Results - last 24 hr 09/17/22 09/18/22 09/18/22 05:00 05:14 05:14 WBC 10.1 RBC 4.46 L Hgb 15.1 Hct 42.5 MCV 95.4 MCH 33.9 MCHC 35.5 RDW 13.3 Plt Count 139 L Neut % (Auto) 75.3 H Lymph % (Auto) 13.6 L [place] % (Auto) 9.1 Eos % (Auto) 1.6 L Baso % (Auto) 0.4 Neut # (Auto) 7600 H Lymph # (Auto) 1400 [place] # (Auto) 900 Eos # (Auto) 200 Baso # (Auto) 0 Sodium 135 L Potassium 3.3 L Chloride 103 Carbon Dioxide 26 BUN 3 L Creatinine 0.50 L Estimated GFR > 60 BUN/Creatinine Ratio 6.0 Glucose 103 H Calcium 8.1 L Total Bilirubin 2.8 H AST 92 H ALT 54 H Alkaline Phosphatase 93 C-Reactive Protein < 0.5 Total Protein 7.2 Albumin 3.8 Globulin 3.4 Albumin/Globulin Ratio 1.1 Lipase 09/18/22 05:14 WBC RBC Hgb Hct MCV MCH MCHC RDW Plt Count Neut % (Auto) Lymph % (Auto) [place] % (Auto) Eos % (Auto) Baso % (Auto) Neut # (Auto) Lymph # (Auto) [place] # (Auto) Eos # (Auto) Baso # (Auto) Sodium Potassium Chloride Carbon Dioxide BUN Creatinine Estimated GFR BUN/Creatinine Ratio Glucose Calcium Total Bilirubin AST ALT Alkaline Phosphatase C-Reactive Protein 4.9 H Total Protein Albumin Globulin Albumin/Globulin Ratio Lipase 316 H D PFSH Medical History (Updated 09/17/22 @ 12:34 by Mary Avalos MD) Duodenal ulcer GERD (gastroesophageal reflux disease) Gout Hypertension Family History (Updated 09/17/22 @ 13:04 by Mary Avalos MD) Father Hypertension Gout Mother Rheumatoid arthritis Family/Other Cancer Social History household members: significant other and family Smoking Status: Current every day smoker alcohol intake: current Assessment & Plan Assessment & Plan narrative: 1. Abdominal pain with CT imaging findings concerning for duodenal ulcer -unclear if pain is from duodenal ulcer, but more consistent with pancreatitis. -Placed on IV Protonix b.i.d.. He will need to discontinue NSAID use and likely discontinue alcohol use. -EGD today planned. 2. Acute alcoholic pancreatitis suspect with EtOH intake, elevated lipase with classical epigastric pain radiating to the back this episode is consistent with pancreatitis despite negative imaging. - continue pain control PRN. Requiring lots of IV doses of pain medications overnight. - advance diet as tolerated, likely clears after EGD today. 3. Uncontrolled hypertension Added hydralazine IV for now. He is prescribed lisinopril 20 mg daily but had not been taking it due to having no insurance and no primary care provider. Have resumed lisinopril, will adjust as needed moving forward. 4. Leukocytosis Likely reactive. No evidence for infection. 5. Hyponatremia Mild at 136. 6. Alcoholic hepatitis AST was 256, ALT 72. Now improving, suspect mild alcoholic hepatitis. Bilirubin to 2.8 today will continue to monitor, imaging on admission without biliary dilatation or stones. 7. Tobacco dependence He declines a nicotine patch at this time. 8. Daily alcohol use He reports 2 alcoholic beverages nightly. At low risk for withdrawal. Code status Full Prophylaxis Low Yoselin score Disposition change to inpatient for acute pancreatitis and continued need for pain control. Surrogate decision maker: Oziel Bhatti, Life partner Discussed with care team today, discussed plan of care with patient. I have reviewed relevant documentation, labs, and imaging personally.
--- NOTE | 2022-09-18 14:50 | PC.NURSE ---
Addendum entered by Kerry Kaminski R.N. 09/18/22 17:10: 1700 pt back to AC from PACU. VSS. alert and oriented. States pain is improved; now rated 2-3/10 to abdomen. notified of pt's returns and the reported results from EGD. MD states pt okay to have dinner. Pt instructed to take PO intake slowly and just start with mashed potatoes and some water or juice (provided). Supportive significant other at bedside. Call light encouraged for needs. Original Note: 1450 pt transferred off of unit by ACETYLENE CUTTER via .
[2022-09-18] MEDS: LACTATED RINGERS 1,000 ML 84 ML IV (15:07)
--- NOTE | 2022-09-18 15:55 | P.CONS_ITS ---
History of Present Illness Consult details Date Patient Seen: 09/18/22 Time Patient Seen: 15:55 Chief complaint: ABD Pain Narrative: Ishmael is a 36-year-old man who presented to the emergency room because of abdominal pain. A CT scan showed what appeared to be significant duodenal ulcer disease without evidence of perforation. It was also noted to have a moderately elevated lipase. He reports he does drink alcohol daily. On average about 2 drinks a day. Also takes ibuprofen regularly. He used to take it daily but has cut back to once every few days. Meds Home Medications and Allergies Home Medications Medication Instructions Recorded Confirmed Type omeprazole 20 mg capsule,delayed 20 mg PO DAILY 09/17/22 09/17/22 History release Allergies Allergy/AdvReac Type Severity Reaction Status Date / Time No Known Drug Allergies Allergy Verified 09/18/22 14:58 Exam Vital Signs (past 8 hours): - 09/18/22 08:43 09/18/22 09:41 09/18/22 12:00 Temperature 97.6 F 97.3 F L Pulse Rate 66 68 Respiratory Rate 17 17 Blood Pressure 150/90 H 150/90 H 142/87 H Pulse Oximetry 97 98 Oxygen Delivery Method Oxygen Flow Rate 0 0 09/18/22 14:58 Temperature 97.7 F Pulse Rate 71 Respiratory Rate 16 Blood Pressure 145/90 H Pulse Oximetry 99 Oxygen Delivery Method Room Air Oxygen Flow Rate Oxygen Delivery Method Room Air Oxygen Flow Rate 0 Const General: No acute distress Resp Effort & Inspection: normal respiratory effort Objective Labs 09/18/22 05:14 09/18/22 05:14 Labs: Laboratory Results - last 24 hr 09/18/22 09/18/22 09/18/22 05:14 05:14 05:14 WBC 10.1 RBC 4.46 L Hgb 15.1 Hct 42.5 MCV 95.4 MCH 33.9 MCHC 35.5 RDW 13.3 Plt Count 139 L Neut % (Auto) 75.3 H Lymph % (Auto) 13.6 L [place] % (Auto) 9.1 Eos % (Auto) 1.6 L Baso % (Auto) 0.4 Neut # (Auto) 7600 H Lymph # (Auto) 1400 [place] # (Auto) 900 Eos # (Auto) 200 Baso # (Auto) 0 Sodium 135 L Potassium 3.3 L Chloride 103 Carbon Dioxide 26 BUN 3 L Creatinine 0.50 L Estimated GFR > 60 BUN/Creatinine Ratio 6.0 Glucose 103 H Calcium 8.1 L Total Bilirubin 2.8 H AST 92 H ALT 54 H Alkaline Phosphatase 93 C-Reactive Protein 4.9 H Total Protein 7.2 Albumin 3.8 Globulin 3.4 Albumin/Globulin Ratio 1.1 Lipase 316 H D [facility] Medical History (Updated 09/17/22 @ 12:34 by Mary Avalos MD) Duodenal ulcer GERD (gastroesophageal reflux disease) Gout Hypertension Family History (Updated 09/17/22 @ 13:04 by Mary Avalos MD) Father Hypertension Gout Mother Rheumatoid arthritis Family/Other Cancer Social History household members: significant other and family Tobacco & Substance Use Smoking Status: Current every day smoker alcohol intake: current Assessment & Plan Assessment and plan (1) Duodenal ulcer: Status: Acute Plan We reviewed the risks of esophagogastroduodenoscopy to better stage and diagnosis ulcer disease. He understands the risks and benefits and would like to proceed. Discuss the need to cut back on NSAID use.
--- NOTE | 2022-09-18 16:23 | PM.OP.EGD ---
Operative Date/Time/Diagnoses Date of procedure: 09/18/22 Time of procedure: 16:23 Pre-op diagnosis: Epigastric pain Post-op diagnosis: same Procedure & Clinicians Study performed: Esophagogastroduodenoscopy Same procedure as scheduled: Yes Surgeon: Marty Rivas Procedure Notes Procedure in detail: Surgeon: Marty Rivas MD Anesthesia: Keegan Bey DO A timeout was performed. A bite blocked was placed. The patient was positioned in the left lateral decubitus position. Anesthesia was administered. The endoscope was inserted through the bite block and passed through the esophagus and stomach and into the duodenum. The duodenal mucosa appeared normal. Random biopsies were taken from descending portion The scope was withdrawn into the duodenal bulb and abnormalities were seen and random biopsies were taken mucosa. The scope was withdrawn into the stomach. Very mild antritis was seen and random biopsies taken from the antrum. The rest of the stomach was normal. The scope was retroflexed and no abnormalities were seen. The scope was withdrawn into the esophagus and no abnormalities were seen. The remainder of the esophagus was normal. The scope was withdrawn. The patient was awakened and brought to recovery. Sedation time: 9 minutes Findings: Essentially normal EGD Post-procedure Disposition: PACU
[2022-09-18] MEDS: OXYCODONE IR 5 MG TABLET PO (19:01)
[2022-09-18] MEDS: PANTOPRAZOLE DR 40 MG TABLET PO (21:07)
[2022-09-19 00:40] VITALS: BP 141/79; PULSE 74; RESP 19; TEMP 37; O2SAT 97
[2022-09-19 05:14] LABS: Add Manual Diff / Slide Review NO; Basophils Absolute Auto 100 /uL (0-100); Eosinophils Absolute Auto 200 /uL (0-450); Eosinophils Percent Auto 2.6 % (2-4); Hematocrit 42.4 % (41-53); Hemoglobin 14.9 g/dL (13.5-17.5); Lymphocytes Absolute Auto 1900 /uL (1100-4500); Lymphocytes Percent Auto 23.3 % (25-40); Mean Corpuscular HGB Conc 35.1 % (30-36); Mean Corpuscular Hemoglobin 34.2 PG (26-34); Mean Corpuscular Volume 97.3 fL (80-100); Monocytes Absolute Auto 600 /uL (0-900); Monocytes Percent Auto 7.4 % (3-14); Neutrophils Absolute Auto 5500 /uL (1500-7000); Neutrophils Percent Auto 65.7 % (50-75); Platelet Count 157 X10^3/uL (150-400); Red Blood Cell Count 4.36 X10^6/uL (4.5-5.9); Red Cell Distribution Width 13.4 % (11.6-14.8); White Blood Cell Count 8.3 X10^3/uL (4.5-11.0)
[2022-09-19 05:24] LABS: Alanine Aminotransferase 49 IU/L (<50); Albumin 3.9 g/dL (3.5-5.0); Albumin Globulin Ratio 1.1 (1.0-2.8); Alkaline Phosphatase 100 U/L (38-126); Aspartate Aminotransferase 75 IU/L (17-59); BUN Creatinine Ratio 15.1 (6-22); Bilirubin Total 1.4 mg/dL (0.2-1.3); Blood Urea Nitrogen 8 mg/dL (9-20); Calcium 8.8 mg/dL (8.4-10.2); Carbon Dioxide 25 mmol/L (22-32); Chloride 104 mmol/L (98-107); Estimated Glomerular Filt Rate > 60 mL/min (>60); Globulin 3.4 g/dL (1.7-4.1); Glucose 103 mg/dL (70-100); HEMOLYSIS 21 (0-50); Sodium 136 mmol/L (137-145); Total Protein 7.3 g/dL (6.3-8.2)
[2022-09-19 05:26] VITALS: BP 140/91; PULSE 64; RESP 18; TEMP 36.3; O2SAT 97
[2022-09-19] MEDS: PANTOPRAZOLE DR 40 MG TABLET PO (06:10)
[2022-09-19] MEDS: ACETAMINOPHEN 325 MG TABLET 650 MG PO (06:13)
[2022-09-19] MEDS: OXYCODONE IR 5 MG TABLET PO (06:13)
[2022-09-19 08:10] VITALS: O2SAT 98
--- NOTE | 2022-09-19 08:12 | P.DS_ITS ---
History of Present Illness History of Present Illness Date Patient Seen: 09/19/22 Time Patient Seen: 08:13 Chief complaint: ABD Pain Narrative: Per admitting provider, 36-year-old male with history of GERD, hypertension, and gout who presented to the emergency department early this morning with sudden onset of right upper quadrant/epigastric pain and several liquid stools. He noted the abdominal pain radiated to his back. He noted it was worse with movement, eating and drinking. It improved with rest. He has had some nausea but no emesis. No fevers or chills. On arrival, temp was 99.4?, heart rate 77, BP 173/113, O2 sats 99% in room air. Blood pressures have remained quite hypertensive since arrival. Labs revealed a white blood cell count of 14.4, sodium 136, potassium 3.8, chloride 104, bicarb 20, BUN 15, creatinine 0.56, glucose 122. Magnesium was normal, total bilirubin normal at 1.2. AST elevated at 256. ALT elevated at 72. Alkaline phosphatase normal at 116. Lipase elevated at 894. UA was within normal limits. Abdominal ultrasound was performed which showed a normal appearance of the gallbladder. Normal intrahepatic bile ducts. Normal extrahepatic bile ducts. Liver was echogenic with loss of portal wall ech ogenicity. CT of the abdomen/pelvis revealed inflammatory change surrounding the 2nd and 3rd portions of the duodenum with associated fat stranding and free fluid. Additionally there was a short segment of the medial wall of segment 2 that demonstrated no enhancement, concerning for an ulcer. There was an indeterminate left renal lesion measuring 2.1 cm felt likely to be a hemorrhagic or proteinaceous cyst. Recommendation was for non urgent renal ultrasound. Colonic diverticulosis was noted without evidence of diverticulitis. In the emergency department patient received 2 doses of IV hydromorphone, 1 L of normal saline, Zofran 4 mg IV, and Protonix 40 mg IV. Admission was recommended. Risk factors for peptic ulcer disease: Patient reports he takes ibuprofen 2-3 days a week. He is a half pack per day smoker. He also drinks 2 alcoholic beverages daily. He does report he takes omeprazole daily with good control of his reflux symptoms. He reports 3-4 years ago when he was living in [place], his physician wanted to obtain an EGD, but his insurance would not cover it. He states since then he has been managing his symptoms with the omeprazole. He does have an appointment to establish care with a PCP in mid September (September 29). He additionally reports that he has had a 5-10 lb explain weight loss over the past couple of months. He lost 20 lb when he switched to a vegan diet 2 years ago and decrease his fatty food intake. He is had decreased appetite, decreased intake. He also reports he has had loose stools over the last 2 weeks. Typically he alternates between constipation and diarrhea. He currently complains of pain mostly in his mid back. No abdominal pain pres ently. He has been having nausea and dizziness each morning recently. He states it takes a couple of hours before those symptoms resolve. Discharge Providers Provider Date of admission: 09/17/22 09:33 Discharge Date: 09/19/22 Primary care physician: Khadar Morales DO Consults: 09/17/22 09:38 Consult to Physician Stat Comment: Consulting Provider: Ian Sawyer Reason for consultation: EGD Has provider been notified: Yes 09/17/22 09:50 Consult to General Surgery Routine Comment: Consulting Provider: Ian Sawyer Reason for consultation: Duodenal ulcer Has provider been notified: Yes Discharge provider: Narinder Eng DO Summary Hospital Course Discharge Diagnosis: 1. Abdominal pain, gastritis on EGD 2. Acute alcoholic pancreatitis 3. hypertension 4. Leukocytosis, resolved 5. Hyponatremia, resolved 6. Alcoholic hepatitis, improved 7. Tobacco dependence 8. Daily alcohol use Hospital Course: This is a 36 year old male admitted with abdominal pain after initial imaging showed concern for a duodenal ulcer. He underwent EGD with general surgery that showed mild gastritis. Suspect imaging findings were related to a mild alcoholic pancreatitis given his clinical course during admission and his presentation with epigastric pain radiating to the back. He was initially given bowel rest and IV fluids, while his diet was advanced slowly. He also had alcoholic hepatitis, with no biliary pathology noted on initial imaging. Laboratory evaluations and liver testing showed slow improvement over the course of admission. H&H remained fairly stable as well with no evidence of active bleeding. He was discharged with slight increase in his home omeprazole to 40 mg given gastritits on EGD. He was counseled on alcohol cessation and declined additional resources at this time. He was eating and tolerating a diet at the time of discharge. Time Spent with Patient Time spent: Greater than 30 minutes Exam Vital Signs (past 8 hours): - 09/19/22 00:40 09/19/22 05:26 Temperature 98.6 F 97.4 F L Pulse Rate 74 64 Respiratory Rate 19 18 Blood Pressure 141/79 H 140/91 H Pulse Oximetry 97 97 Oxygen Flow Rate 0 0 Oxygen Delivery Method Room Air Oxygen Flow Rate 0 Narrative Exam Narrative: GEN: Adult male, Alert and oriented x3, very soft-spoken, no acute distress HEENT: Normocephalic, face symmetric, pupils equal round reactive to light, extraocular movements intact, sclerae anicteric, conjunctiva clear, nares patent, oropharynx reveals an intact soft and hard palate with moist mucous membranes, dentition is fair NECK: Supple, no lymphadenopathy, thyroid without enlargement or nodularity, carotids no bruits CHEST: Respiratory excursions symmetric, clear to auscultation bilaterally CV: Regular rate and rhythm, no murmurs, rubs, gallops, PMI nondisplaced ABD: Soft, mild epigastric tenderness, no distension. EXTR: Warm, well perfused, no clubbing/cyanosis/edema SKIN: Warm and dry, without rash NEURO: Alert and oriented x3, grossly intact PSYCH: Mood and affect is within normal limits, judgment and insight are appropriate Objective Labs 09/19/22 05:02 09/19/22 05:02 Labs: Laboratory Results - last 24 hr 09/19/22 09/19/22 05:02 05:02 WBC 8.3 RBC 4.36 L Hgb 14.9 Hct 42.4 MCV 97.3 MCH 34.2 H MCHC 35.1 RDW 13.4 Plt Count 157 Neut % (Auto) 65.7 Lymph % (Auto) 23.3 L [place] % (Auto) 7.4 Eos % (Auto) 2.6 Baso % (Auto) 1.0 Neut # (Auto) 5500 Lymph # (Auto) 1900 [place] # (Auto) 600 Eos # (Auto) 200 Baso # (Auto) 100 Sodium 136 L Potassium 4.0 Chloride 104 Carbon Dioxide 25 BUN 8 L Creatinine 0.53 L Estimated GFR > 60 BUN/Creatinine Ratio 15.1 Glucose 103 H Calcium 8.8 Magnesium 2.0 Total Bilirubin 1.4 H AST 75 H ALT 49 Alkaline Phosphatase 100 Total Protein 7.3 Albumin 3.9 Globulin 3.4 Albumin/Globulin Ratio 1.1 [facility] Medical History (Updated 09/17/22 @ 12:34 by Mary Avalos MD) Duodenal ulcer GERD (gastroesophageal reflux disease) Gout Hypertension Family History (Updated 09/17/22 @ 13:04 by Mary Avalos MD) Father Hypertension Gout Mother Rheumatoid arthritis Family/Other Cancer Social History household members: significant other and family Smoking Status: Current every day smoker alcohol intake: current Discharge Plan Discharge Plan Patient Disposition: Home Provider Discharge Comment: You were admitted to the hospital with abdominal pain. EGD showed mild gastritis or inflammation in your stomach, I recommend increasing home omeprazole for now to 40 mg daily instead of 20 mg. You were also started on a BP medication while here, please follow up with PCP for continued management of elevated BP. Your abdominal pain I suspect was due to pancreatitis, or inflammation of your pancreas, likely due to alcohol. Recommend you try to cut back as much as possible on alcohol consumption. Discharge orders & Medications Prescriptions: New lisinopril 20 mg Tablet 20 mg PO DAILY 90 Days Qty: 90 0RF Changed omeprazole 20 mg Capsule,Delayed Release(Dr/Ec) 40 mg PO DAILY Qty: 60 0RF Follow up/Referrals: Khadar Morales DO [Primary Care Provider] - Diet/Activity/Treatments Diet: Diet as Tolerated and Regular Activity: As tolerated Visit Report/Discharge Packet Instructions: Upper GI Endoscopy, DI for Pancreatitis, DI for Gastroesophageal Reflux Disease (GERD), DI for Gastritis Stand Alone Forms: Patient Portal/API, Stroke Signs & Symptoms Discharge Data Primary Care Provider: Khadar Morales
[2022-09-19 08:21] VITALS: BP 141/96; PULSE 61
[2022-09-19] MEDS: lisinopriL 20 MG TABLET PO (08:21)
[2022-09-19 09:00] VITALS: BP 141/96; PULSE 61; RESP 17; TEMP 36.6; O2SAT 98
== END 2022-09-19 11:00 | disposition home or self-care (01) | DRG 391 ==
LOC: ED 09:33 → AC 09-18 06:23
PROVIDERS: Emergency Medicine; Internal Medicine; Surgery; Admitting Provider Family Medicine; Emergency Provider Emergency Medicine; PCP Family Medicine; Referring Provider Emergency Medicine; Visit Provider Family Medicine
PROC: 0DJ08ZZ Inspection of Upper Intestinal Tract, Via Natural or Artificial Opening Endoscopic (ICD-10-PCS; CPT 43235; principal; 2022-09-18 16:15)
DX: K29.70 Gastritis, unspecified, without bleeding (principal); K85.20 Alcohol induced acute pancreatitis without necrosis or infection; E87.1 Hypo-osmolality and hyponatremia; I10 Essential (primary) hypertension; K70.10 Alcoholic hepatitis without ascites; F17.210 Nicotine dependence, cigarettes, uncomplicated; Z20.822 Contact with and (suspected) exposure to COVID-19
CPT/HCPCS: 36415; 43239; 74177; 76705; 80053; 81003; 81015; 83690; 83735; 85007; 85025; 86140; 96374; 96375; 96376; 99232; 99284; C9113; J0360; J1170; J2405; J2704; Q9967

== ENCOUNTER → 2022-09-25 09:43 | Outpatient (CLI) | payer OTHER, SELFPAY ==
[2022-09-17 10:36] VITALS: BMI 26.9
[2022-09-25 11:21] LABS: Alanine Aminotransferase 57 IU/L (<50); Albumin 4.3 g/dL (3.5-5.0); Albumin Globulin Ratio 1.2 (1.0-2.8); Alkaline Phosphatase 85 U/L (38-126); Aspartate Aminotransferase 46 IU/L (17-59); BUN Creatinine Ratio 12.7 (6-22); Bilirubin Total 0.7 mg/dL (0.2-1.3); Blood Urea Nitrogen 8 mg/dL (9-20); Calcium 9.2 mg/dL (8.4-10.2); Carbon Dioxide 27 mmol/L (22-32); Chloride 105 mmol/L (98-107); Estimated Glomerular Filt Rate > 60 mL/min (>60); Globulin 3.7 g/dL (1.7-4.1); Glucose 107 mg/dL (70-100); HEMOLYSIS < 15 (0-50); Lipase 308 U/L (23-300); Potassium 4.1 mmol/L (3.4-5.1); Sodium 140 mmol/L (137-145); Uric Acid 8.3 mg/dL (3.5-8.5)
== END ==
PROVIDERS: PCP Family Medicine; Referring Provider Family Medicine; Visit Provider Family Medicine
DX: I10 Essential (primary) hypertension (principal); M10.9 Gout, unspecified; K21.9 Gastro-esophageal reflux disease without esophagitis; K26.9 Duodenal ulcer, unspecified as acute or chronic, without hemorrhage or perforation
CPT/HCPCS: 36415; 80053; 83690; 84550

== ENCOUNTER → 2022-12-29 12:06 | Outpatient (CLI) | payer OTHER, SELFPAY ==
[2022-09-17 10:36] VITALS: BMI 26.9
--- NOTE | 2022-12-29 12:07 | DI.US.S_ITS ---
PROCEDURE: US RENAL COMPLETE INDICATIONS: FOLLOW UP RENAL CYST TECHNIQUE: Real-time scanning was performed of the kidneys and bladder, with image documentation. COMPARISON: [facility], CT, CT ABDOMEN PELVIS W CON, 09/17/2022, 6:19. [facility], US, US ABDOMEN LIMITED, 09/17/2022, 5:24. FINDINGS: Kidneys: Kidneys are normal in size. Right kidney measures 11.1 cm long; left kidney measures 11.6 cm long. Right renal cortical thickness is 2.1 cm; left renal cortical thickness is 2.7 cm. Renal cortical echotexture is normal. No hydronephrosis or convincing nephrolithiasis. No suspicious solid mass lesions. 1.6 x 1.5 x 1.5 cm hypoechoic exophytic mid left renal cyst. (This measured 2.1 x 1.8 x [address] 09/17/2022 and 65 Hounsfield units). No internal vascularity. There is posterior through transmission. Bladder: Pre-void bladder volume is 194 mL. Post-void residual is unable to be assessed. Pre-void images demonstrate no intraluminal masses or stones. On pre-void images, left ureteral jets are noted with color Doppler interrogation. (Of note, ureteral jets may not be detectable in up to 25% of cases due to insufficient differences in specific gravity between ureteral and bladder urine). Miscellaneous: No free pelvic fluid. IMPRESSION: Left mid kidney exophytic hypoechoic cyst measuring 1.6 cm corresponding to the left renal lesion seen on recent CT. The cyst is slightly decreased in size, is a vascular, and is most consistent with a proteinaceous/hemorrhagic cyst. Dictated by: Darshan LOZANO Interpreted: Rogelio Lunsford MD on 12/29/2022 at 12:49 Approved by: Dean Bolanos M.D. on 01/02/2023 at 9:07
== END ==
PROVIDERS: PCP Family Medicine; Referring Provider Family Medicine; Visit Provider Family Medicine
DX: N28.1 Cyst of kidney, acquired (principal)
CPT/HCPCS: 76770

== ENCOUNTER → 2023-01-08 06:55 | Outpatient (CLI) | payer OTHER, SELFPAY ==
[2022-09-17 10:36] VITALS: BMI 26.9
[2023-01-08 08:22] LABS: Hemoglobin A1C% w Est Avg Glu 5.1 % (4.0-6.0)
[2023-01-08 08:35] LABS: Alanine Aminotransferase 35 IU/L (<50); Albumin 4.1 g/dL (3.5-5.0); Albumin Globulin Ratio 1.4 (1.0-2.8); Alkaline Phosphatase 79 U/L (38-126); Aspartate Aminotransferase 59 IU/L (17-59); BUN Creatinine Ratio 9.7 (6-22); Bilirubin Total 0.7 mg/dL (0.2-1.3); Blood Urea Nitrogen 6 mg/dL (9-20); Calcium 9.4 mg/dL (8.4-10.2); Carbon Dioxide 17 mmol/L (22-32); Chloride 109 mmol/L (98-107); Estimated Glomerular Filt Rate > 60 mL/min (>60); Globulin 2.9 g/dL (1.7-4.1); Glucose 116 mg/dL (70-100); HEMOLYSIS < 15 (0-50); Lipase 352 U/L (23-300); Potassium 3.6 mmol/L (3.4-5.1); Sodium 138 mmol/L (137-145); Uric Acid 5.4 mg/dL (3.5-8.5)
[2023-01-08 09:07] LABS: TSH w/ Reflex to FT4 1.55 uIU/mL (0.47-4.68)
== END ==
PROVIDERS: PCP Family Medicine; Referring Provider Family Medicine; Visit Provider Family Medicine
DX: K85.90 Acute pancreatitis without necrosis or infection, unspecified (principal); F10.90 Alcohol use, unspecified, uncomplicated; I10 Essential (primary) hypertension; M10.9 Gout, unspecified; K21.9 Gastro-esophageal reflux disease without esophagitis
CPT/HCPCS: 36415; 80053; 83036; 83690; 84443; 84550

== ENCOUNTER → 2023-02-02 11:49 | Outpatient (CLI) | payer OTHER, SELFPAY ==
[2022-09-17 10:36] VITALS: BMI 26.9
[2023-02-02 12:22] LABS: Add Manual Diff / Slide Review NO; Basophils Absolute Auto 200 /uL (0-100); Basophils Percent Auto 2.5 % (0-2); Eosinophils Absolute Auto 100 /uL (0-450); Eosinophils Percent Auto 2.2 % (2-4); Hematocrit 41.4 % (41-53); Hemoglobin 14.3 g/dL (13.5-17.5); Lymphocytes Absolute Auto 2200 /uL (1100-4500); Lymphocytes Percent Auto 34.5 % (25-40); Mean Corpuscular HGB Conc 34.7 % (30-36); Mean Corpuscular Hemoglobin 33.8 PG (26-34); Mean Corpuscular Volume 97.6 fL (80-100); Monocytes Absolute Auto 500 /uL (0-900); Monocytes Percent Auto 8.1 % (3-14); Neutrophils Absolute Auto 3400 /uL (1500-7000); Neutrophils Percent Auto 52.7 % (50-75); Platelet Count 231 X10^3/uL (150-400); Red Blood Cell Count 4.24 X10^6/uL (4.5-5.9); Red Cell Distribution Width 14.1 % (11.6-14.8); White Blood Cell Count 6.4 X10^3/uL (4.5-11.0)
[2023-02-02 12:40] LABS: Alanine Aminotransferase 55 IU/L (<50); Albumin 4.4 g/dL (3.5-5.0); Albumin Globulin Ratio 1.3 (1.0-2.8); Alkaline Phosphatase 64 U/L (38-126); Amylase 60 U/L (30-110); Aspartate Aminotransferase 61 IU/L (17-59); BUN Creatinine Ratio 19.3 (6-22); Bilirubin Total 0.6 mg/dL (0.2-1.3); Blood Urea Nitrogen 11 mg/dL (9-20); Calcium 9.3 mg/dL (8.4-10.2); Carbon Dioxide 22 mmol/L (22-32); Chloride 108 mmol/L (98-107); Estimated Glomerular Filt Rate > 60 mL/min (>60); Globulin 3.3 g/dL (1.7-4.1); Glucose 109 mg/dL (70-100); HEMOLYSIS < 15 (0-50); Lipase 207 U/L (23-300); Sodium 138 mmol/L (137-145); Total Protein 7.7 g/dL (6.3-8.2); Uric Acid 5.8 mg/dL (3.5-8.5)
[2023-02-02 13:10] LABS: TSH w/ Reflex to FT4 0.92 uIU/mL (0.47-4.68)
== END ==
PROVIDERS: PCP Family Medicine; Referring Provider Family Medicine; Visit Provider Family Medicine
DX: I10 Essential (primary) hypertension (principal); M10.9 Gout, unspecified; K85.90 Acute pancreatitis without necrosis or infection, unspecified; Z87.19 Personal history of other diseases of the digestive system
CPT/HCPCS: 36415; 80053; 82150; 83690; 84443; 84550; 85025

== ENCOUNTER 2023-04-06 09:11 | Inpatient (IN) | payer OTHER, SELFPAY ==
[2022-09-17 10:36] VITALS: BMI 26.9
[2023-04-06] VITALS (21 sets, daily range): BP systolic 166–192; BP diastolic 80–117; PULSE 63–101; RESP 16–30; TEMP 36.5–37.4; O2SAT 95–99; BMI 28.7
[2023-04-06 09:44] LABS: Alanine Aminotransferase 110 IU/L (<50); Albumin 4.6 g/dL (3.5-5.0); Alkaline Phosphatase 124 U/L (38-126); Aspartate Aminotransferase 191 IU/L (17-59); BUN Creatinine Ratio 10.6 (6-22); Bilirubin Total 3.1 mg/dL (0.2-1.3); Blood Urea Nitrogen 7 mg/dL (9-20); Calcium 8.7 mg/dL (8.4-10.2); Carbon Dioxide 10 mmol/L (22-32); Chloride 101 mmol/L (98-107); Estimated Glomerular Filt Rate > 60 mL/min (>60); Globulin 4.7 g/dL (1.7-4.1); Glucose 121 mg/dL (70-100); Lipase 1843 U/L (23-300); Potassium 4.6 mmol/L (3.4-5.1); Sodium 127 mmol/L (137-145); Total Protein 9.3 g/dL (6.3-8.2)
[2023-04-06 09:46] LABS: HEMOLYSIS 80 (0-50)
--- NOTE | 2023-04-06 10:02 | ED.ABDPAIN ---
HPI - Abdominal Pain General Chief Complaint: Abdominal Pain Stated Complaint: abd pain Time Seen by Provider: 04/06/23 09:59 Source: patient, RN notes reviewed and old records reviewed Mode of arrival: Ambulatory Limitations: no limitations History of Present Illness HPI narrative: 37-year-old male with history of hypertension, gout, GERD with a reported history of prior elevated cholesterol but states he has not on any daily medication for cholesterol and prior episode of pancreatitis. Patient states he started having epigastric pain midline radiating around to the right and through to his back last night. Had nausea and 1 episode of vomiting last night. No vomiting today but continues to be nauseated. No fevers. Patient states he had some small pebbly stools in the last day. No black or blood. No urinary symptoms. States symptoms feel very similar when he had pancreatitis before. States this was in September. States no prior surgeries. No known drug allergies. Does smoke tobacco daily, drinks twice weekly with alcohol usually 2 cocktails each time. He states before September he was drinking daily. Uses marijuana. Denies any recreational drugs. Dr. Morales is his primary care physician. Related Data Home Medications Medication Instructions Recorded Confirmed naproxen 500 mg tablet 500 mg PO BID 12/01/22 12/01/22 Previous Rx's Medication Instructions Recorded allopurinol 300 mg tablet 300 mg PO DAILY #90 tabs 09/28/22 colchicine 0.6 mg tablet 0.6 mg PO BID PRN Acute gout 09/28/22 attack #30 tabs lisinopril 20 mg tablet 20 mg PO DAILY 90 days #90 tabs 09/28/22 omeprazole 20 mg capsule,delayed 20 mg PO DAILY #90 caps 09/28/22 release Allergies Allergy/AdvReac Type Severity Reaction Status Date / Time banana Allergy Verified 04/06/23 12:04 peanut Allergy Verified 04/06/23 12:04 pineapple Allergy Verified 04/06/23 12:04 pistachio nut Allergy Verified 04/06/23 12:04 sunflower seed Allergy Verified 04/06/23 12:04 tomato Allergy Verified 04/06/23 12:04 Review of Systems Review of Systems ROS Unobtainable: All systems reviewed & are unremarkable except as noted in HPI and below Patient History Medical History History of duodenal ulcer Allergies Shoulder pain (~2011) Carpal tunnel syndrome (~2014) Acute pancreatitis Alcohol use disorder GERD (gastroesophageal reflux disease) (~2014) Gout (~2016) Hypertension (~2014) Duodenal ulcer Surgical History Anesthesia History of endoscopy (~2022) History of tonsillectomy (~1989) [place] teeth removed (~1997) Lipoma (~1999) History of knee surgery (~2016) Family History Father Hypertension Gout Mother Rheumatoid arthritis Hyperlipidemia Family/Other Cancer Brother Gout Social History household members: significant other and family Smoking Status: Current every day smoker alcohol intake: current Smoking Status: Current every day smoker tobacco type: cigarettes alcohol intake frequency: a few times a month Substance Use Type: marijuana Exam Narrative Exam Narrative: GENERAL: Alert and oriented x three, male in moderate distress. HEENT: Head normocephalic, atraumatic, EOMI, pupils reactive, face symmetric, moist mucous membranes NECK: Supple, full range of motion CARDIOVASCULAR: Regular rate and rhythm without murmurs, rubs or gallops. RESPIRATORY: Breath sounds equal bilaterally, no wheezes rales or rhonchi. ABDOMEN: Soft, positive for epigastric and right upper quadrant tenderness. Normoactive bowel sounds all 4 quadrants. No guarding or rebound, rigidity, no mass : No CVA tenderness EXTREMITIES: Normal range of motion, no clubbing or edema. Neurovascularly intact NEUROLOGICAL: Cranial nerves II through XII grossly intact. Moving all extremities SKIN: Warm, dry, no petechiae, no rashes or lesions. Initial Vital Signs Initial Vital Signs: Vital Signs Pulse Rate 99 H 04/06/23 09:18 Pulse Oximetry 99 04/06/23 09:18 Course Orders Ordered: ED Orders 04/06/23 09:25 Complete Blood Count AUTO DIFF Stat Comprehensive Metabolic Panel Stat Lipase Stat Lipid Panel Stat 04/06/23 10:09 US abdomen limited Stat Acetaminophen (Acetaminophen 325 Mg Tablet) 650 mg PO Q6H PRN PRN Reason: Fever/Mild Pain (1-3) Allopurinol (Allopurinol 100 Mg Tablet) 300 mg PO DAILY DANELLE Folic Acid (Folic Acid 1 Mg Tablet) 1 mg PO DAILY [facility] Hydromorphone HCl (Hydromorphone 0.5 Mg Inj) 0.5 mg IV Q3H PRN PRN Reason: Pain, Moderate (4-6) Hydromorphone HCl (Hydromorphone 1 Mg Inj) 1 mg IV Q3H PRN PRN Reason: Pain, Severe (7-10) INSULIN DRIP PREMIX (Myxredlin Drip Premix) 100 unit in 100 mls @ 6 mls/hr IV TITRATE DANELLE; Protocol Last Admin: 04/06/23 11:32 Dose: 6 ml/hr, 6 mls/hr Dextrose/Sodium Chloride (Dextrose 5%-0.45% Ns) 1,000 mls @ 150 mls/hr IV CONT DANELLE Last Admin: 04/06/23 11:32 Dose: 150 mls/hr Magnesium Sulfate (Magnesium Sulfate) 4 gm in 100 mls @ 25 mls/hr IV NOW ONE Stop: 04/06/23 15:48 Ketorolac Tromethamine (Ketorolac 30 Mg/Ml Vial) 30 mg IV Q6H PRN PRN Reason: Pain, Moderate (4-6) Lisinopril (Lisinopril 20 Mg Tablet) 20 mg PO DAILY [facility] Lorazepam (Lorazepam 1 Mg Tablet) 0 mg PO CIWAPRN PRN; Protocol PRN Reason: Alcohol Withdrawal Melatonin (Melatonin 3 Mg Tablet) 6 mg PO BEDTIME PRN PRN Reason: Insomnia Multivitamins (Multivitamin 1 Tablet) 1 tab PO DAILY [facility] Naloxone HCl (Naloxone 0.4 Mg/Ml Vial) 0.2 mg IV Q2MIN PRN PRN Reason: Opiate Reversal Ondansetron HCl (Ondansetron 4 Mg/2 Ml Inj) 4 mg IV Q4HR PRN PRN Reason: Nausea And Vomiting Oxycodone HCl (Oxycodone Ir 5 Mg Tablet) 5 mg PO Q3HR PRN PRN Reason: Pain, Moderate (4-6) Oxycodone HCl (Oxycodone Ir 10 Mg Tablet) 10 mg PO Q3HR PRN PRN Reason: Pain, Severe (7-10) Pantoprazole Sodium (Pantoprazole 40 Mg Vial) 40 mg IV DAILY [facility] Thiamine HCl (Thiamine 100 Mg Tablet) 100 mg PO DAILY [facility] Stop: 04/09/23 09:01 Discontinued Medications Ketorolac Tromethamine (Ketorolac 30 Mg/Ml Vial) 15 mg IV NOW ONE Stop: 04/06/23 10:10 Last Admin: 04/06/23 10:22 Dose: 15 mg Documented By: RAGHAV Ondansetron HCl (Ondansetron 4 Mg Odt) 4 mg PO NOW PRN PRN Reason: Nausea And Vomiting Ondansetron HCl (Ondansetron 4 Mg/2 Ml Inj) 4 mg IV NOW PRN PRN Reason: Nausea And Vomiting Ondansetron HCl (Ondansetron 4 Mg/2 Ml Inj) 4 mg IV NOW ONE Stop: 04/06/23 10:10 Last Admin: 04/06/23 10:23 Dose: 4 mg Documented By: RAGHAV Vital Signs Vital signs: Vital Signs - 8 hr 04/06/23 09:18 04/06/23 09:19 04/06/23 09:19 Temperature Pulse Rate 99 H 101 H Respiratory Rate Blood Pressure 177/117 H Pulse Oximetry 99 99 Oxygen Delivery Method 04/06/23 09:28 04/06/23 09:30 04/06/23 10:00 Temperature 97.9 F Pulse Rate 99 H 71 67 Respiratory Rate 16 Blood Pressure 177/117 H Pulse Oximetry 99 98 96 Oxygen Delivery Method Room Air 04/06/23 10:30 04/06/23 11:00 Temperature Pulse Rate 69 65 Respiratory Rate Blood Pressure Pulse Oximetry 98 95 Oxygen Delivery Method MDM - Abdominal Pain Lab Data 04/06/23 09:25 04/06/23 09:25 Labs: Lab Results 04/06/23 Range/Units 09:25 WBC 14.3 H (4.5-11.0) X10^3/uL RBC 5.20 (4.5-5.9) X10^6/uL Hgb 15.8 (13.5-17.5) g/dL Hct 45.8 (41-53) % MCV 92.2 (80-100) fL MCH 30.4 (26-34) PG MCHC 34.5 (30-36) % RDW 13.9 (11.6-14.8) % Plt Count 221 (150-400) X10^3/uL Neut % (Auto) 80.8 H (50-75) % Lymph % (Auto) 12.2 L (25-40) % [place] % (Auto) 5.6 (3-14) % Eos % (Auto) 0.6 L (2-4) % Baso % (Auto) 0.8 (0-2) % Neut # (Auto) 95102 H (9151-3800) /uL Lymph # (Auto) 1800 (7418-9003) /uL [place] # (Auto) 800 (0-900) /uL Eos # (Auto) 100 (0-450) /uL Baso # (Auto) 100 (0-100) /uL PT Cancelled INR Cancelled Sodium 127 L (137-145) mmol/L Potassium 4.6 (3.4-5.1) mmol/L Chloride 101 (98-107) mmol/L Carbon Dioxide 10 L (22-32) mmol/L BUN 7 L (9-20) mg/dL Creatinine 0.66 (0.66-1.25) mg/dL Estimated GFR > 60 (>60) mL/min BUN/Creatinine Ratio 10.6 (6-22) Glucose 121 H (70-100) mg/dL Calcium 8.7 (8.4-10.2) mg/dL Total Bilirubin 3.1 H (0.2-1.3) mg/dL AST 191 H (17-59) IU/L ALT 110 H (<50) IU/L Alkaline Phosphatase 124 (38-126) U/L Total Protein 9.3 H (6.3-8.2) g/dL Albumin 4.6 (3.5-5.0) g/dL Globulin 4.7 H (1.7-4.1) g/dL Albumin/Globulin Ratio 1.0 (1.0-2.8) Triglycerides 4210 H (35-150) mg/dL Cholesterol 487 H (140-199) mg/dL LDL Cholesterol, Calc TNP HDL Cholesterol 23 L (40-60) mg/dL Lipase 1843 H (23-300) U/L Imaging Data US - abdomen: Radiologist's Impression: Close Abdomen Ultrasound (Signed) Charleen Geronimo - 04/06/23 Renal Ultrasound (Signed) Rogelio Lunsford - 12/29/22 Abdomen/Pelvis CT (Signed) Timothy Tate - 09/17/22 Abdomen Ultrasound (Signed) Timothy Tate - 09/17/[address] [address] Ultrasound Report Signed Patient: Ishmael Moran MR#: [id number] : 1985 Acct:[id number] Age/Sex: 37 / M Date of Service: 04/06/23 Loc: ED Accession Number: [id number] Procedure: US abdomen limited Ordering Provider: Patricia Lipscomb D.O. PROCEDURE: US ABDOMEN LIMITED INDICATIONS: RUQ, +bili and lipase, +etoh but also lipemic blood TECHNIQUE: Real-time scanning was performed of the abdominal and retroperitoneal organs, with image documentation. COMPARISON: None. FINDINGS: Liver: Liver is enlarged measuring 22.7 centimeters. Liver is diffusely echogenic. No intrahepatic biliary tree dilatation. Enlarged main portal vein. Hepatopetal flow noted in the main portal vein. Gallbladder: No gallstones. No wall thickening. No pericholecystic edema. Negative sonographic Ramos's sign. Biliary ducts: Intrahepatic bile ducts are non-dilated. Extrahepatic bile duct not well visualized due to bowel gas and cannot be evaluated. Pancreas: Not visualized due to bowel gas and cannot be evaluated Right Kidney: Normal in size and echotexture, without hydronephrosis. No solid masses. IVC: Intrahepatic inferior vena cava is patent where visualized. Miscellaneous: No free abdominal fluid. IMPRESSION: Hepatomegaly. Echogenic liver which is a nonspecific finding that may represent fatty infiltration or hepatic cirrhosis. Please correlate with clinical findings. No sonographic evidence of cholelithiasis or cholecystitis. If there is continued clinical concern for cholecystitis, a nuclear medicine HIDA scan should be considered for further evaluation. Dictated by: Charleen Geronimo MD, PhD on 04/06/2023 at 10:39 Approved by: Charleen Geronimo MD, PhD on 04/06/2023 at 10:41 [facility] Narrative Medical decision making narrative: 37-year-old male with history of pancreatitis does continue to use alcohol but after discussion does have a history of dyslipidemia. Labs noted his blood was lipemic they were unable to run coags without send out. Asked to add on lipid panel. Labs show white count of 14 normal hemoglobin and platelets. Sodium is 127 CO2 is 10 BUN 7 with a creatinine 0.6 glucose is 121 potassium 4.6. Bilirubin 3.1 with an AST of 191 ALT of 110 lipase is 184. Lipid panel shows triglycerides of 4210, cholesterol is 47 with HDL of 23. Abdominal ultrasound shows hepatomegaly, echogenic liver with nonspecific could be fatty infiltration or hepatic cirrhosis. No evidence of cholelithiasis or cholecystitis. Pancreas is not clearly seen. Spoke with Dr. Choudhary who accepts for inpatient for pancreatitis secondary to hypertriglyceridemia. Reviewed imaging and lab findings. He is comfortable holding off on CT scan at this time. Will start insulin drip with dextrose half-normal saline 150 mL/hour secondary to hypertriglyceridemia. We will use half-normal secondary to hyponatremia. Updated patient. He is comfortable with plan. They know used to be on a plant based diet but no longer. Discussed this would likely be helpful but probably will still need some medication therapy for his hypertriglyceridemia. Critical Care Time Critical Care Time Critical Care Time: Yes Total Critical Care Time: 25 Attestation: The high probability of a clinically significant, sudden or life threatening deterioration of the [xardiac, pulm] system(s) required my full and direct attention, intervention and personal management. The aggregate critical care time was [] minutes. This time is in addition to time spent performing reported procedures but includes the following: [x] Data Review and interpretation [x] Patient assessment and monitoring of vital signs [x] Documentation [x] Medication orders and management Discharge Plan Departure Patient Disposition: Admitted As Inpatient Clinical Impression: Pancreatitis, Hypertriglyceridemia Admit Date/Time: 04/06/23 11:12 Admit Provider: Kvng Choudhary
--- NOTE | 2023-04-06 10:09 | DI.US.S_ITS ---
PROCEDURE: US ABDOMEN LIMITED INDICATIONS: RUQ, +bili and lipase, +etoh but also lipemic blood TECHNIQUE: Real-time scanning was performed of the abdominal and retroperitoneal organs, with image documentation. COMPARISON: None. FINDINGS: Liver: Liver is enlarged measuring 22.7 centimeters. Liver is diffusely echogenic. No intrahepatic biliary tree dilatation. Enlarged main portal vein. Hepatopetal flow noted in the main portal vein. Gallbladder: No gallstones. No wall thickening. No pericholecystic edema. Negative sonographic Ramos's sign. Biliary ducts: Intrahepatic bile ducts are non-dilated. Extrahepatic bile duct not well visualized due to bowel gas and cannot be evaluated. Pancreas: Not visualized due to bowel gas and cannot be evaluated Right Kidney: Normal in size and echotexture, without hydronephrosis. No solid masses. IVC: Intrahepatic inferior vena cava is patent where visualized. Miscellaneous: No free abdominal fluid. IMPRESSION: Hepatomegaly. Echogenic liver which is a nonspecific finding that may represent fatty infiltration or hepatic cirrhosis. Please correlate with clinical findings. No sonographic evidence of cholelithiasis or cholecystitis. If there is continued clinical concern for cholecystitis, a nuclear medicine HIDA scan should be considered for further evaluation. Dictated by: Charleen Geronimo MD, PhD on 04/06/2023 at 10:39 Approved by: Charleen Geronimo MD, PhD on 04/06/2023 at 10:41
[2023-04-06 10:14] LABS: HDL Cholesterol 23 mg/dL (40-60)
[2023-04-06 10:20] LABS: Cholesterol 487 mg/dL (140-199)
[2023-04-06] MEDS: KETOROLAC 30 MG/ML VIAL 15 MG IV (10:22)
[2023-04-06] MEDS: ONDANSETRON 4 MG/2 ML INJ IV (10:23)
[2023-04-06 10:25] LABS: Add Manual Diff / Slide Review NO; Basophils Absolute Auto 100 /uL (0-100); Basophils Percent Auto 0.8 % (0-2); Hematocrit 45.8 % (41-53); Hemoglobin 15.8 g/dL (13.5-17.5); Mean Corpuscular HGB Conc 34.5 % (30-36); Mean Corpuscular Volume 92.2 fL (80-100); Red Cell Distribution Width 13.9 % (11.6-14.8)
[2023-04-06 10:26] LABS: Lymphocytes Percent Auto 12.2 % (25-40); Monocytes Percent Auto 5.6 % (3-14); Neutrophils Percent Auto 80.8 % (50-75); Platelet Count 221 X10^3/uL (150-400); White Blood Cell Count 14.3 X10^3/uL (4.5-11.0)
[2023-04-06 10:27] LABS: Eosinophils Absolute Auto 100 /uL (0-450); Eosinophils Percent Auto 0.6 % (2-4); Lymphocytes Absolute Auto 1800 /uL (1100-4500); Monocytes Absolute Auto 800 /uL (0-900); Neutrophils Absolute Auto 11600 /uL (1500-7000)
[2023-04-06 10:33] LABS: Mean Corpuscular Hemoglobin 30.4 PG (26-34)
[2023-04-06 10:48] LABS: Triglycerides 4210 mg/dL (35-150)
[2023-04-06] MEDS: INSULIN DRIP PREMIX 100 UNIT/100 ML PLAST..BAG 6 UNIT IV (11:32)
[2023-04-06] MEDS: DEXTROSE 5%-0.45% NS 1,000 ML 150 ML IV ×2 (11:32→18:28)
[2023-04-06 11:47] LABS: Magnesium 1.4 mg/dL (1.6-2.3)
[2023-04-06 12:02] LABS: Lactate (Lactic Acid) 0.7 mmol/L (0.7-2.1)
[2023-04-06] MEDS: HYDROMORPHONE 1 MG INJ IV ×3 (13:05→20:42)
[2023-04-06] MEDS: MAGNESIUM SULFATE 4 GM/100 ML PIGGYBACK IV (13:15)
--- NOTE | 2023-04-06 13:19 | P.HP_ITS ---
History of Present Illness History of Present Illness Date Patient Seen: 04/06/23 Chief complaint: abd pain Narrative: Ishmael Moran is a 37yo M with PMH of alcohol use disorder, pancreatitis, GERD, gout and HTN who presents with acute abdominal pain and NV. Patient states he has been eating more poorly lately consisting of fast food including dominos and [employer] due to the poor weather. He started having abd pain with NV last night and threw up soup he attempted to eat. Pain progressed so he came to the ED. States he has been cutting back on alcohol and has 2 cocktails weekly. Still smokes cigarettes and marijuana daily. He denies CP, SOB, hematemesis, or diarrhea. [facility] Medical History History of duodenal ulcer Allergies Shoulder pain (~2011) Carpal tunnel syndrome (~2014) Acute pancreatitis Alcohol use disorder GERD (gastroesophageal reflux disease) (~2014) Gout (~2016) Hypertension (~2014) Duodenal ulcer Surgical History Anesthesia History of endoscopy (~2022) History of tonsillectomy (~1989) [place] teeth removed (~1997) Lipoma (~1999) History of knee surgery (~2016) Family History Father Hypertension Gout Mother Rheumatoid arthritis Hyperlipidemia Family/Other Cancer Brother Gout Social History household members: significant other and family Smoking Status: Current every day smoker alcohol intake: current Comment: Patient smokes 1/2 pack per day of cigarettes. Drinks 2 alcoholic beverages weekly. He also smokes marijuana daily. 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 Meds Home Medications and Allergies Home Medications Medication Instructions Recorded Confirmed Type allopurinol 300 mg tablet 300 mg PO DAILY #90 tabs 09/28/22 04/06/23 Rx colchicine 0.6 mg tablet 0.6 mg PO BID PRN Acute gout 09/28/22 04/06/23 Rx attack #30 tabs lisinopril 20 mg tablet 20 mg PO DAILY 90 days #90 tabs 09/28/22 04/06/23 Rx omeprazole 20 mg capsule,delayed 20 mg PO DAILY #90 caps 09/28/22 04/06/23 Rx release Allergies Allergy/AdvReac Type Severity Reaction Status Date / Time banana Allergy Verified 04/06/23 12:04 peanut Allergy Verified 04/06/23 12:04 pineapple Allergy Verified 04/06/23 12:04 pistachio nut Allergy Verified 04/06/23 12:04 sunflower seed Allergy Verified 04/06/23 12:04 tomato Allergy Verified 04/06/23 12:04 Review of Systems Review of Systems Narrative: All other systems reviewed with the patient and are negative unless otherwise stated. Exam Vital Signs (past 8 hours): - 04/06/23 09:18 04/06/23 09:19 04/06/23 09:19 Temperature Pulse Rate 99 H 101 H Respiratory Rate Blood Pressure 177/117 H Pulse Oximetry 99 99 Oxygen Delivery Method Oxygen Flow Rate 04/06/23 09:28 04/06/23 09:30 04/06/23 10:00 Temperature 97.9 F Pulse Rate 99 H 71 67 Respiratory Rate 16 Blood Pressure 177/117 H Pulse Oximetry 99 98 96 Oxygen Delivery Method Room Air Oxygen Flow Rate 04/06/23 10:30 04/06/23 10:54 04/06/23 11:00 Temperature 99.4 F Pulse Rate 69 79 65 Respiratory Rate 30 H Blood Pressure 180/117 H Pulse Oximetry 98 98 95 Oxygen Delivery Method Oxygen Flow Rate 0 04/06/23 11:30 04/06/23 11:30 04/06/23 12:00 Temperature Pulse Rate 74 Respiratory Rate Blood Pressure 179/113 H 184/109 H Pulse Oximetry 96 Oxygen Delivery Method Oxygen Flow Rate 04/06/23 12:00 Temperature Pulse Rate 63 Respiratory Rate Blood Pressure Pulse Oximetry 97 Oxygen Delivery Method Oxygen Flow Rate Oxygen Delivery Method Room Air Oxygen Flow Rate 0 Narrative Exam Narrative: GEN: uncomfortable and in pain HEENT: moist mucous membranes, PERRL NECK: trachea midline, no JVD CV: regular rate and rhythm, no murmurs PULM: clear bilaterally ABD: soft, tenderness in mid-abdomen, nondistended, no organomegaly EXT: warm and well perfused with no edema NEURO: awake, alert, oriented, no focal deficits Objective Labs 04/06/23 09:25 04/06/23 09:25 Labs: Laboratory Results - last 24 hr 04/06/23 04/06/23 04/06/23 09:25 11:14 11:40 WBC 14.3 H RBC 5.20 Hgb 15.8 Hct 45.8 MCV 92.2 MCH 30.4 MCHC 34.5 RDW 13.9 Plt Count 221 Neut % (Auto) 80.8 H Lymph % (Auto) 12.2 L [place] % (Auto) 5.6 Eos % (Auto) 0.6 L Baso % (Auto) 0.8 Neut # (Auto) 38581 H Lymph # (Auto) 1800 [place] # (Auto) 800 Eos # (Auto) 100 Baso # (Auto) 100 PT Cancelled Cancelled INR Cancelled Cancelled Sodium 127 L Potassium 4.6 Chloride 101 Carbon Dioxide 10 L BUN 7 L Creatinine 0.66 Estimated GFR > 60 BUN/Creatinine Ratio 10.6 Glucose 121 H Lactate 0.7 Calcium 8.7 Magnesium 1.4 L Total Bilirubin 3.1 H AST 191 H ALT 110 H Alkaline Phosphatase 124 Total Protein 9.3 H Albumin 4.6 Globulin 4.7 H Albumin/Globulin Ratio 1.0 Triglycerides 4210 H Cholesterol 487 H LDL Cholesterol, Calc TNP HDL Cholesterol 23 L Lipase 1843 H Assessment & Plan Assessment & Plan narrative: # hypertriglyceride-induced pancreatitis -TG 4210, blood lipemic on lab draws -lipase 1843, has central abdominal pain -started insulin drip at 6u/hr with D5W-1/2 NS, q6g BG checks -trend TG -obtain CT abd with contrast to be safe as patient has elevated LFT's and more central abd pain, not epigastric -once TG <500 start gemfibrozil -NPO diet for now, ice chips ok -antiemetics PRN # hypertension -continue lisinopril # leukocytosis -likely reactive, no evidence for infection # hyponatremia -Na 127, likely hypovolemic as patient unable to take po -may worsen with D5 IVF -monitor # Alcoholic hepatitis -AST 191, ALT 110 -abd US without cholecystitis, fatty infiltration of liver present -monitor and avoid hepatotoxic agents # tobacco dependence -nicotine patch if requested # alcohol use -He reports 2 alcoholic beverages weekly. -CIWA -MV, thiamine and folate daily # GERD -PPI # gout -continue allopurinol Code status is full code. DVT prophylaxis with SCDs. Proxy is Chanjudi Bhatti, Life partner. I have reviewed home meds and used all available resources to reconcile the home meds. Case discussed with ED physician/APC and patient will be admitted to the hospitalist service for further workup and management. This patient will be admitted as inpatient and will require greater than 2 midnights of hospital time to treat pancreatitis.
--- NOTE | 2023-04-06 13:22 | DI.CT.S_ITS ---
PROCEDURE: CT ABDOMEN PELVIS W CON INDICATIONS: pancreatitis, elevated LFT's TECHNIQUE: After the administration of intravenous contrast, axial sections acquired from the lung bases to the pubic symphysis. Coronal and sagittal reformats were performed. For radiation dose reduction, the following was used: automated exposure control, adjustment of mA and/or kV according to patient size. COMPARISON: [facility], , ABDOMEN LIMITED, 04/06/2023, 10:23. FINDINGS: Image quality: Diagnostic. Lower Chest: No significant findings. ABDOMEN: Liver: No solid mass. The liver is diffusely enlarged measuring over 22 cm craniocaudad and demonstrates diffuse fatty infiltration Gallbladder: No radiopaque gallstones or wall thickening. Biliary ducts: No biliary dilation. Pancreas: No ductal dilation but there is moderately severe peripancreatic edema extending within the retroperitoneum inferiorly almost to the pelvis level.. Spleen: Size is within normal limits. Adrenal Glands: No adrenal nodules. Kidneys and Ureters: No hydronephrosis. No solid mass. No complex renal cystic lesion which requires follow up. Stomach and Bowel: Normal colonic caliber, without significant wall thickening. Peritoneum: No abnormal intraperitoneal fluid. No free air. Ventral Wall: No hernia. Abdominal Nodes: No retroperitoneal or mesenteric adenopathy by size criteria. Vessels: Aorta and inferior vena cava are normal in size. PELVIS: Pelvic Organs: Unremarkable. Bladder: Unremarkable. Pelvic Nodes: No enlarged lymph nodes. Miscellaneous: No inguinal hernias are seen. Bones: No aggressive osseous abnormality. IMPRESSION: Hepatomegaly with diffuse severe fatty infiltration. Splenomegaly is not associated. Acute moderately severe pancreatitis centered over the pancreatic head and body. No pancreatic necrosis is currently suspected. Dictated by: Kamron Sanders M.D. on 04/06/2023 at 14:22 Approved by: Kamron Sanders M.D. on 04/06/2023 at 14:25
[2023-04-06] MEDS: THIAMINE 100 MG TABLET PO (13:49)
[2023-04-06] MEDS: MULTIVITAMIN 1 TABLET 1 TAB PO (13:50)
[2023-04-06] MEDS: FOLIC ACID 1 MG TABLET PO (13:50)
[2023-04-06] MEDS: METOCLOPRAMIDE 10 MG/2 ML INJ IV (13:52)
[2023-04-06 14:13] LABS: MRSA (Nasal) PCR Not Detected (Not Detect)
[2023-04-06] MEDS: lisinopriL 20 MG TABLET PO ×2 (14:20→14:22)
--- NOTE | 2023-04-06 14:48 | PC.NURSE ---
Rec'd pt from ED at 1254, pt c/o abd pain 10/26 that radiates through back; also c/o moderate nausea; Dr Choudhary to bedside to see pt; medicated w/ dilaudid 1mg iv w/ good relief; pt to CT of abd; tolerating po meds w/ sips of h20
--- NOTE | 2023-04-06 18:58 | PC.NURSE ---
pt continues to have abd pain, which is being controlled w/ iv dilaudid; reports nausea greatly improved and tolerating ice chips insulin drip at 6 units/hr and D5 1/2 NS @ 150ml/hr
[2023-04-07] VITALS (23 sets, daily range): BP systolic 125–168; BP diastolic 57–80; PULSE 74–95; RESP 16–20; TEMP 36.9–37.2; O2SAT 93–99
[2023-04-07] MEDS: DEXTROSE 5%-0.45% NS 1,000 ML 150 ML IV ×2 (01:20→08:16)
[2023-04-07] MEDS: HYDROMORPHONE 1 MG INJ IV (01:20)
[2023-04-07] MEDS: INSULIN DRIP PREMIX 100 UNIT/100 ML PLAST..BAG 6 UNIT IV (01:21)
[2023-04-07 05:26] LABS: Add Manual Diff / Slide Review NO; Basophils Absolute Auto 0 /uL (0-100); Basophils Percent Auto 0.3 % (0-2); Eosinophils Absolute Auto 0 /uL (0-450); Eosinophils Percent Auto 0.3 % (2-4); Hematocrit 43.8 % (41-53); Hemoglobin 15.1 g/dL (13.5-17.5); Lymphocytes Absolute Auto 1500 /uL (1100-4500); Lymphocytes Percent Auto 10.9 % (25-40); Mean Corpuscular HGB Conc 34.5 % (30-36); Mean Corpuscular Hemoglobin 31.9 PG (26-34); Mean Corpuscular Volume 92.5 fL (80-100); Monocytes Absolute Auto 800 /uL (0-900); Monocytes Percent Auto 5.7 % (3-14); Neutrophils Absolute Auto 11100 /uL (1500-7000); Neutrophils Percent Auto 82.8 % (50-75); Platelet Count 151 X10^3/uL (150-400); Red Blood Cell Count 4.73 X10^6/uL (4.5-5.9); Red Cell Distribution Width 13.6 % (11.6-14.8); White Blood Cell Count 13.5 X10^3/uL (4.5-11.0)
[2023-04-07 05:44] LABS: Alanine Aminotransferase 63 IU/L (<50); Albumin 3.4 g/dL (3.5-5.0); Alkaline Phosphatase 79 U/L (38-126); Aspartate Aminotransferase 90 IU/L (17-59); Bilirubin Total 1.5 mg/dL (0.2-1.3); Calcium 8.3 mg/dL (8.4-10.2); Carbon Dioxide 21 mmol/L (22-32); Chloride 100 mmol/L (98-107); Estimated Glomerular Filt Rate > 60 mL/min (>60); Globulin 3.4 g/dL (1.7-4.1); Glucose 63 mg/dL (70-100); Lipase 475 U/L (23-300); Potassium 3.7 mmol/L (3.4-5.1); Sodium 128 mmol/L (137-145); Total Protein 6.8 g/dL (6.3-8.2)
[2023-04-07 05:45] LABS: Magnesium 2.1 mg/dL (1.6-2.3)
[2023-04-07 05:51] LABS: HEMOLYSIS 39 (0-50)
[2023-04-07 05:55] LABS: BUN Creatinine Ratio 2.9 (6-22); Blood Urea Nitrogen 2 mg/dL (9-20); Triglycerides 698 mg/dL (35-150)
--- NOTE | 2023-04-07 06:50 | PC.NURSE ---
Patient resting in bed most of the shift. up independently. abd pain controlled well with ivp dilaudid. insulin gtt stopped d/t lab glucose at 62. pt has been a&o, calm and cooperative.
[2023-04-07] MEDS: allopurinoL 100 MG TABLET 300 MG PO (08:07)
[2023-04-07] MEDS: OXYCODONE IR 10 MG TABLET PO (08:07)
[2023-04-07] MEDS: FOLIC ACID 1 MG TABLET PO (08:08)
[2023-04-07] MEDS: MULTIVITAMIN 1 TABLET 1 TAB PO (08:08)
[2023-04-07] MEDS: THIAMINE 100 MG TABLET PO (08:08)
[2023-04-07] MEDS: PANTOPRAZOLE 40 MG VIAL IV (08:09)
[2023-04-07] MEDS: lisinopriL 20 MG TABLET PO (08:22)
[2023-04-07] MEDS: OXYCODONE IR 5 MG TABLET PO ×3 (12:03→21:04)
--- NOTE | 2023-04-07 12:38 | PC.NURSE ---
In AM, RN got report from award clerk RN that award clerk RN had stopped insulin gtt due to am blood glucose of 63. RN took BG at 0800, assessed pt, and restarted insulin gtt per non-DKA insulin drip protocol. Pt denied signs and symptoms of hypoglycemia. HEALTH RESEARCHER notified provider that pt was still on insulin drip and provider ordered ICU status. RN contacted pharmacy regarding pt's lisinopril that it had already been scanned off in the MAY yesterday for todays dose. RN had not given lisinopril this am and pt was hypertensive. Order was fixed by provider and RN administered medication per order.
[2023-04-07 12:48] LABS: Triglycerides 453 mg/dL (35-150)
[2023-04-07] MEDS: ONDANSETRON 4 MG/2 ML INJ IV (13:03)
[2023-04-07] MEDS: gemfibroziL 600 MG TABLET PO ×2 (13:03→16:42)
--- NOTE | 2023-04-07 15:34 | CM.DANOTE ---
Patient is a 37 yo male who was admitted on 04/06/23 for Abd Pain. Pt has [employer] for insurance and his PCP is Dr. Khadar Morales. EMR was reveiwed. Per MD, pt with hx of ETOH use and past pancreatitis and ulcer and admitted after having rich fatty foods for pancreatitis and currently NPO and hyperglycemia. SW met briefly bedside with pt and explained role and he confirms that he and Sig Other live in an RV at [facility] where he also works as a maintenance staff. Pt is typically active and independent with ADLs, drives, does not use DME for ambulation. Pt confirms that he has significantly reduced his ETOH intake and now typically only about 2 drinks a week and denies any KEARA resources needed at this time. Pt does not anticipate any d/c needs and confirms that he has a ride home at discharge. Plan: SW to follow closely to confirm pt can tolerate advancing diet and getting off insulin drip and any further identified discharge planning needs. FAUZIA Sultana Discharge Planning/Care Management CM Discharge Assessment Start: 04/07/23 15:32 Freq: Status: Active Protocol: Document 04/07/23 15:32 BF (Rec: 04/07/23 15:34 BF [id number]) Discharge Planning Assessment Assigned Prop Maker FAUZIA Arguello DPOA/Assigned Designee Name informally Sig Other Oziel Contact Information [phone] Advance Directives? No Advance Directives on File No History Provided By Patient,Medical Record Has Patient been admitted in last 30 No days? Prior Living Arrangements RV Household Members significant other Independent with ADL's Yes Is patient alert and oriented? Yes Caregiver for Another No Barriers to Discharge No Discharge Plan Home Transportation Arrangement Sig Other to provide transport at d/c Referrals Initiated None needed Whiteboard Updated in Patient Room with Yes name and ext. # of Prop Maker Review Status In Process Please Provide Date Initial DC 04/07/23 Assessment Was Performed Next Review Type Continued Stay Review
--- NOTE | 2023-04-07 17:13 | P.PN_ITS ---
Subjective Subjective Interval history: Patient's abd pain improving. TG down to 453 so insulin drip stopped. Started gemfibrozil. Patient advancing diet to full liquids. Exam Vital Signs (past 8 hours): - 04/07/23 09:53 04/07/23 10:05 04/07/23 10:05 Temperature Pulse Rate 86 87 Respiratory Rate Blood Pressure 125/61 Pulse Oximetry 96 96 04/07/23 11:00 04/07/23 11:00 04/07/23 12:00 Temperature Pulse Rate 83 85 Respiratory Rate Blood Pressure 127/57 L Pulse Oximetry 96 97 04/07/23 12:00 04/07/23 12:13 04/07/23 16:00 Temperature 98.9 F 98.8 F Pulse Rate 86 85 Respiratory Rate 17 Blood Pressure 130/70 143/74 H Pulse Oximetry 96 98 Oxygen Delivery Method Room Air Oxygen Flow Rate 0 Narrative Exam Narrative: GEN: NAD HEENT: moist mucous membranes, PERRL NECK: trachea midline, no JVD CV: regular rate and rhythm, no murmurs PULM: clear bilaterally ABD: soft, tenderness in mid-abdomen improving, nondistended, no organomegaly EXT: warm and well perfused with no edema NEURO: awake, alert, oriented, no focal deficits Objective Labs 04/07/23 04:50 04/07/23 04:50 Labs: Laboratory Results - last 24 hr 04/07/23 04/07/23 04:50 12:12 WBC 13.5 H RBC 4.73 Hgb 15.1 Hct 43.8 MCV 92.5 MCH 31.9 MCHC 34.5 RDW 13.6 Plt Count 151 Neut % (Auto) 82.8 H Lymph % (Auto) 10.9 L [place] % (Auto) 5.7 Eos % (Auto) 0.3 L Baso % (Auto) 0.3 Neut # (Auto) 99868 H Lymph # (Auto) 1500 [place] # (Auto) 800 Eos # (Auto) 0 Baso # (Auto) 0 Sodium 128 L Potassium 3.7 Chloride 100 Carbon Dioxide 21 L BUN 2 L Creatinine 0.69 Estimated GFR > 60 BUN/Creatinine Ratio 2.9 L Glucose 63 L Calcium 8.3 L Magnesium 2.1 Total Bilirubin 1.5 H AST 90 H ALT 63 H Alkaline Phosphatase 79 Total Protein 6.8 Albumin 3.4 L Globulin 3.4 Albumin/Globulin Ratio 1.0 Triglycerides 698 H 453 H Lipase 475 H D [facility] Medical History History of duodenal ulcer Allergies Shoulder pain (~2011) Carpal tunnel syndrome (~2014) Acute pancreatitis Alcohol use disorder GERD (gastroesophageal reflux disease) (~2014) Gout (~2016) Hypertension (~2014) Duodenal ulcer Surgical History Anesthesia History of endoscopy (~2022) History of tonsillectomy (~1989) [place] teeth removed (~1997) Lipoma (~1999) History of knee surgery (~2016) Family History Father Hypertension Gout Mother Rheumatoid arthritis Hyperlipidemia Family/Other Cancer Brother Gout Social History household members: significant other Smoking Status: Current every day smoker alcohol intake: current Assessment & Plan Assessment & Plan narrative: # hypertriglyceride-induced pancreatitis, improving -TG 4210, blood lipemic on lab draws -lipase 1843, has central abdominal pain -started insulin drip at 6u/hr with D5W-1/2 NS, q6g BG checks -trend TG -CT abd with hepatomegaly and severe fatty infiltration, mod-severe pancreatitis, no necrosis -now off insulin drip and started gemfibrozil -advancing diet to full liquids -antiemetics PRN # hypertension -continue lisinopril # leukocytosis -likely reactive, no evidence for infection # hyponatremia -Na 127, likely hypovolemic as patient unable to take po -monitor # Alcoholic hepatitis -AST 191, ALT 110 -abd US without cholecystitis, fatty infiltration of liver present -monitor and avoid hepatotoxic agents # tobacco dependence -nicotine patch if requested # alcohol use -He reports 2 alcoholic beverages weekly. -CIWA -MV, thiamine and folate daily # GERD -PPI # gout -continue allopurinol Code status is full code. DVT prophylaxis with SCDs. Proxy is Rosa Mcristian Magy, Life partner. I have reviewed home meds and used all available resources to reconcile the home meds. Dispo: Home in 1-2 days pending improvement in pancreatitis and able to eat. Quality VTE Deep Vein Thrombosis/Pulmonary Embolism Present on Admission: No
[2023-04-07] MEDS: ACETAMINOPHEN 325 MG TABLET 650 MG PO (21:04)
[2023-04-08 03:00] VITALS: BP 132/75; PULSE 61; RESP 16; TEMP 37; O2SAT 97
[2023-04-08 03:56] VITALS: PULSE 66; O2SAT 98
[2023-04-08 03:57] VITALS: BP 132/75; PULSE 65; O2SAT 98
[2023-04-08 04:23] LABS: Add Manual Diff / Slide Review NO; Basophils Absolute Auto 100 /uL (0-100); Eosinophils Absolute Auto 200 /uL (0-450); Eosinophils Percent Auto 1.6 % (2-4); Hematocrit 38.7 % (41-53); Hemoglobin 13.3 g/dL (13.5-17.5); Lymphocytes Absolute Auto 1600 /uL (1100-4500); Lymphocytes Percent Auto 16.5 % (25-40); Mean Corpuscular HGB Conc 34.4 % (30-36); Mean Corpuscular Hemoglobin 32.1 PG (26-34); Mean Corpuscular Volume 93.4 fL (80-100); Monocytes Absolute Auto 700 /uL (0-900); Neutrophils Absolute Auto 7200 /uL (1500-7000); Neutrophils Percent Auto 73.9 % (50-75); Platelet Count 125 X10^3/uL (150-400); Red Blood Cell Count 4.14 X10^6/uL (4.5-5.9); Red Cell Distribution Width 13.9 % (11.6-14.8); White Blood Cell Count 9.8 X10^3/uL (4.5-11.0)
[2023-04-08 04:28] LABS: Alanine Aminotransferase 50 IU/L (<50); Albumin 3.3 g/dL (3.5-5.0); Albumin Globulin Ratio 0.9 (1.0-2.8); Alkaline Phosphatase 82 U/L (38-126); Aspartate Aminotransferase 53 IU/L (17-59); BUN Creatinine Ratio 6.2 (6-22); Bilirubin Total 1.5 mg/dL (0.2-1.3); Blood Urea Nitrogen 4 mg/dL (9-20); Calcium 8.6 mg/dL (8.4-10.2); Carbon Dioxide 23 mmol/L (22-32); Chloride 100 mmol/L (98-107); Estimated Glomerular Filt Rate > 60 mL/min (>60); Globulin 3.5 g/dL (1.7-4.1); Glucose 106 mg/dL (70-100); HEMOLYSIS < 15 (0-50); Lipase 402 U/L (23-300); Potassium 3.3 mmol/L (3.4-5.1); Sodium 132 mmol/L (137-145); Total Protein 6.8 g/dL (6.3-8.2); Triglycerides 297 mg/dL (35-150)
[2023-04-08] MEDS: gemfibroziL 600 MG TABLET PO (06:46)
--- NOTE | 2023-04-08 08:41 | P.DS_ITS ---
History of Present Illness History of Present Illness Chief complaint: abd pain Narrative: Ishmael Moran is a 37yo M with PMH of alcohol use disorder, pancreatitis, GERD, gout and HTN who presents with acute abdominal pain and NV. Patient states he has been eating more poorly lately consisting of fast food including dominos and miladys yony's due to the poor weather. He started having abd pain with NV last night and threw up soup he attempted to eat. Pain progressed so he came to the ED. States he has been cutting back on alcohol and has 2 cocktails weekly. Still smokes cigarettes and marijuana daily. He denies CP, SOB, hematemesis, or diarrhea. Triglyceride level on admit 4210. Discharge Providers Provider Date of admission: 04/06/23 11:12 Discharge Date: 04/08/23 Primary care physician: Khadar Morales DO Consults: 04/06/23 11:24 Consult to Dietitian, Adult Routine Comment: Reason For Exam: hypertriglyceride causing pancreatitis Discharge provider: Davon Marquez MD Summary Hospital Course Discharge Diagnosis: 1. Acute pancreatitis due to hypertriglyceridemia 2. Fatty liver disease 3. Hypertension 4. Hyponatremia 5. Gout, history of 6. Nicotine dependency PROCEDURE: CT ABDOMEN PELVIS W CON INDICATIONS: pancreatitis, elevated LFT's TECHNIQUE: After the administration of intravenous contrast, axial sections acquired from the lung bases to the pubic symphysis. Coronal and sagittal reformats were performed. For radiation dose reduction, the following was used: automated exposure control, adjustment of mA and/or kV according to patient size. COMPARISON: [facility], , US ABDOMEN LIMITED, 04/06/2023, 10:23. FINDINGS: Image quality: Diagnostic. Lower Chest: No significant findings. ABDOMEN: Liver: No solid mass. The liver is diffusely enlarged measuring over 22 cm craniocaudad and demonstrates diffuse fatty infiltration Gallbladder: No radiopaque gallstones or wall thickening. Biliary ducts: No biliary dilation. Pancreas: No ductal dilation but there is moderately severe peripancreatic edema extending within the retroperitoneum inferiorly almost to the pelvis level.. Spleen: Size is within normal limits. Adrenal Glands: No adrenal nodules. Kidneys and Ureters: No hydronephrosis. No solid mass. No complex renal cystic lesion which requires follow up. Stomach and Bowel: Normal colonic caliber, without significant wall thickening. Peritoneum: No abnormal intraperitoneal fluid. No free air. Ventral Wall: No hernia. Abdominal Nodes: No retroperitoneal or mesenteric adenopathy by size criteria. Vessels: Aorta and inferior vena cava are normal in size. PELVIS: Pelvic Organs: Unremarkable. Bladder: Unremarkable. Pelvic Nodes: No enlarged lymph nodes. Miscellaneous: No inguinal hernias are seen. Bones: No aggressive osseous abnormality. IMPRESSION: Hepatomegaly with diffuse severe fatty infiltration. Splenomegaly is not associated. Acute moderately severe pancreatitis centered over the pancreatic head and body. No pancreatic necrosis is currently suspected. Dictated by: Kamron Sanders M.D. on 04/06/2023 at 14:22 Approved by: Kamron Sanders M.D. on 04/06/2023 at 14:25 PROCEDURE: US ABDOMEN LIMITED INDICATIONS: RUQ, +bili and lipase, +etoh but also lipemic blood TECHNIQUE: Real-time scanning was performed of the abdominal and retroperitoneal organs, with image documentation. COMPARISON: None. FINDINGS: Liver: Liver is enlarged measuring 22.7 centimeters. Liver is diffusely echogenic. No intrahepatic biliary tree dilatation. Enlarged main portal vein. Hepatopetal flow noted in the main portal vein. Gallbladder: No gallstones. No wall thickening. No pericholecystic edema. Negative sonographic Ramos's sign. Biliary ducts: Intrahepatic bile ducts are non-dilated. Extrahepatic bile duct not well visualized due to bowel gas and cannot be evaluated. Pancreas: Not visualized due to bowel gas and cannot be evaluated Right Kidney: Normal in size and echotexture, without hydronephrosis. No solid masses. IVC: Intrahepatic inferior vena cava is patent where visualized. Miscellaneous: No free abdominal fluid. IMPRESSION: Hepatomegaly. Echogenic liver which is a nonspecific finding that may represent fatty infiltration or hepatic cirrhosis. Please correlate with clinical findings. No sonographic evidence of cholelithiasis or cholecystitis. If there is continued clinical concern for cholecystitis, a nuclear medicine HIDA scan should be considered for further evaluation. Dictated by: Charleen Geronimo MD, PhD on 04/06/2023 at 10:39 Approved by: Charleen Geronimo MD, PhD on 04/06/2023 at 10:41 Hospital Course: # hypertriglyceride-induced pancreatitis, resolving -TG 4210, blood lipemic on lab draws -lipase 1843, has central abdominal pain -treatd with insulin drip at 6u/hr with D5W-1/2 NS -CT abd with hepatomegaly and severe fatty infiltration, mod-severe pancreatitis, no necrosis -now off insulin drip and started gemfibrozil -tolerated gen diet prior to discharge -TG 297 by day of discharge # hypertension -continue lisinopril # leukocytosis -likely reactive, no evidence for infection # hyponatremia, resolving -Na 127, likely hypovolemic as patient unable to take po -follow up Na 132 # Fatty liver diseaase -initial AST 191, ALT 110 -- improving -abd US without cholecystitis, fatty infiltration of liver present # tobacco dependence -enc to quit # alcohol use -He reports 2 alcoholic beverages weekly. -enc complete avoidance # GERD -PPI # gout -continue allopurinol Status at Discharge Cognitive/behavioral status at discharge: oriented Functional status at discharge: independent ambulation Overall status at discharge: patient is progressing back to baseline Time Spent with Patient Time spent: Greater than 30 minutes Exam Vital Signs (past 8 hours): - 04/08/23 03:00 04/08/23 03:56 04/08/23 03:57 Temperature 98.6 F Pulse Rate 61 66 Respiratory Rate 16 Blood Pressure 132/75 132/75 Pulse Oximetry 97 98 Oxygen Flow Rate 0 04/08/23 03:57 Temperature Pulse Rate 65 Respiratory Rate Blood Pressure Pulse Oximetry 98 Oxygen Flow Rate Oxygen Delivery Method Room Air Oxygen Flow Rate 0 Narrative Exam Narrative: Gen: alert, well oriented, NAD Objective Labs 04/08/23 03:40 04/08/23 03:40 Labs: Laboratory Results - last 24 hr 04/07/23 04/08/23 12:12 03:40 WBC 9.8 RBC 4.14 L Hgb 13.3 L Hct 38.7 L MCV 93.4 MCH 32.1 MCHC 34.4 RDW 13.9 Plt Count 125 L Neut % (Auto) 73.9 Lymph % (Auto) 16.5 L [place] % (Auto) 7.0 Eos % (Auto) 1.6 L Baso % (Auto) 1.0 Neut # (Auto) 7200 H Lymph # (Auto) 1600 [place] # (Auto) 700 Eos # (Auto) 200 Baso # (Auto) 100 Sodium 132 L Potassium 3.3 L Chloride 100 Carbon Dioxide 23 BUN 4 L Creatinine 0.65 L Estimated GFR > 60 BUN/Creatinine Ratio 6.2 Glucose 106 H Calcium 8.6 Magnesium 2.0 Total Bilirubin 1.5 H AST 53 ALT 50 H Alkaline Phosphatase 82 Total Protein 6.8 Albumin 3.3 L Globulin 3.5 Albumin/Globulin Ratio 0.9 L Triglycerides 453 H 297 H Lipase 402 H PFSH Medical History History of duodenal ulcer Allergies Shoulder pain (~2011) Carpal tunnel syndrome (~2014) Acute pancreatitis Alcohol use disorder GERD (gastroesophageal reflux disease) (~2014) Gout (~2016) Hypertension (~2014) Duodenal ulcer Surgical History Anesthesia History of endoscopy (~2022) History of tonsillectomy (~1989) [place] teeth removed (~1997) Lipoma (~1999) History of knee surgery (~2016) Family History Father Hypertension Gout Mother Rheumatoid arthritis Hyperlipidemia Family/Other Cancer Brother Gout Social History household members: significant other Smoking Status: Current every day smoker alcohol intake: current Discharge Plan Discharge Plan Patient Disposition: Home Provider Discharge Comment: Your triglyceride level was 4210 (normal < 150). CT scan showed severe fatty infiltration of the liver and an inflamed pancreas. Avoid any alcohol. Quit smoking. Work on losing excess weight. We started you on gemfibrozil. There is also prescription fish oil as alternative for triglyceride lowering. Recheck lipid panel in a month. Discharge orders & Medications Prescriptions: New gemfibrozil 600 mg tablet 600 mg PO BID Qty: 60 0RF Continued allopurinol 300 mg tablet 300 mg PO DAILY Qty: 90 3RF colchicine 0.6 mg tablet 0.6 mg PO BID PRN (Reason: Acute gout attack) Qty: 30 0RF lisinopril 20 mg tablet 20 mg PO DAILY 90 Days Qty: 90 3RF omeprazole 20 mg capsule,delayed release(DR/EC) 20 mg PO DAILY Qty: 90 1RF Follow up/Referrals: Khadar Morales DO [Primary Care Provider] - Diet/Activity/Treatments Diet: Regular Visit Report/Discharge Packet Instructions: High Triglycerides Stand Alone Forms: Patient Portal/API, Stroke Signs & Symptoms Discharge Data Primary Care Provider: Khadar Morales VTE Deep Vein Thrombosis/Pulmonary Embolism Present on Admission: No
[2023-04-08] MEDS: THIAMINE 100 MG TABLET PO (08:46)
[2023-04-08] MEDS: lisinopriL 20 MG TABLET PO (08:46)
[2023-04-08] MEDS: POTASSIUM CHLORIDE 20 MEQ TAB PO (08:46)
[2023-04-08] MEDS: allopurinoL 100 MG TABLET 300 MG PO (08:46)
[2023-04-08] MEDS: PANTOPRAZOLE 40 MG VIAL IV (08:46)
[2023-04-08] MEDS: FOLIC ACID 1 MG TABLET PO (08:46)
[2023-04-08] MEDS: MULTIVITAMIN 1 TABLET 1 TAB PO (08:46)
[2023-04-08 09:16] VITALS: BP 135/68; PULSE 77; RESP 16; TEMP 36.3; O2SAT 96
--- NOTE | 2023-04-08 12:07 | CM.DPC ---
DCP Discharge Home Per MD in MDR this morning, pt medically stable to discharge and no identified barriers to d/c and no SW needs. Per RN, no concerns noted and pt has ride home set up for late morning. Pt tolerating diet, voiding, and ambulating independently. Plan: Patient to discharge home today via POV and outpt f/u with recommendation for low fat diet, abstain from smoking and drinking, and labs in a month with PCP f/u. No further SW needs at this time. FAUZIA Sultana
== END 2023-04-08 10:55 | disposition home or self-care (01) | DRG 439 ==
LOC: ED 09:59 → AC 11:12 → ICU 11:41
PROVIDERS: Admitting Provider Student in an Organized Health Care Education/Training Program; Emergency Provider Emergency Medicine; PCP Family Medicine; Referring Provider Emergency Medicine; Visit Provider Student in an Organized Health Care Education/Training Program
DX: K85.90 Acute pancreatitis without necrosis or infection, unspecified (principal); E87.1 Hypo-osmolality and hyponatremia; I10 Essential (primary) hypertension; F10.90 Alcohol use, unspecified, uncomplicated; K21.9 Gastro-esophageal reflux disease without esophagitis; M10.9 Gout, unspecified; E78.1 Pure hyperglyceridemia; K76.0 Fatty (change of) liver, not elsewhere classified; F17.200 Nicotine dependence, unspecified, uncomplicated
CPT/HCPCS: 36415; 74177; 76705; 80053; 80061; 82962; 83605; 83690; 83735; 84478; 85025; 87797; 96365; 96375; 99284; 99285; C9113; J1170; J1885; J2405; J2765; J3475

== ENCOUNTER 2023-09-10 10:28 | Emergency (ER) | payer OTHER, SELFPAY ==
[2023-04-06 13:10] VITALS: BMI 28.7
[2023-09-10] VITALS (8 sets, daily range): BP systolic 128–147; BP diastolic 64–87; PULSE 71–105; RESP 13–29; TEMP 37.2; O2SAT 93–99; BMI 28.7
--- NOTE | 2023-09-10 10:40 | ED.GENADULT ---
HPI - General Adult General Chief complaint: Allergic Reaction Stated complaint: BAD ALLERGIC REACTION Time Seen by Provider: 09/10/23 10:33 Source: patient Mode of arrival: Ambulatory Limitations: no limitations History of Present Illness HPI narrative: Patient is a 37-year-old male who is here for evaluation of an allergic reaction most likely to a bee sting. He states he was stung only 1 time. He has never had a reaction like this in the past. He did take 50 mg of Benadryl prior to arrival. He was having a rash with hives on his upper extremities. He states that it does feel like it is hard to breathe. No vomiting. No fevers. Related Data Previous Rx's Medication Instructions Recorded allopurinol 300 mg tablet 300 mg PO DAILY #90 tabs 09/28/22 colchicine 0.6 mg tablet 0.6 mg PO BID PRN Acute gout 09/28/22 attack #30 tabs lisinopril 20 mg tablet 20 mg PO DAILY 90 days #90 tabs 09/28/22 omeprazole 20 mg capsule,delayed 20 mg PO DAILY #90 caps 09/28/22 release gemfibrozil 600 mg tablet 600 mg PO BID #180 tabs 04/26/23 epinephrine 0.3 mg/0.3 mL 0.3 mg (0.3 mL) IM Q5-15M PRN 09/10/23 injection, auto-injector (EpiPen hypersensitivity reaction #2 ea 2-Jasen) prednisone 20 mg tablet 20 mg PO DAILY 7 days #7 tabs 09/10/23 Allergies Allergy/AdvReac Type Severity Reaction Status Date / Time banana Allergy Verified 04/26/23 10:31 peanut Allergy Verified 04/26/23 10:31 pineapple Allergy Verified 04/26/23 10:31 pistachio nut Allergy Verified 04/26/23 10:31 sunflower seed Allergy Verified 04/26/23 10:31 tomato Allergy Verified 04/26/23 10:31 Review of Systems Review of Systems ROS Unobtainable: All systems reviewed & are unremarkable except as noted in HPI and below Patient History Medical History History of duodenal ulcer Allergies Shoulder pain (~2011) Carpal tunnel syndrome (~2014) Acute pancreatitis Alcohol use disorder GERD (gastroesophageal reflux disease) (~2014) Gout (~2016) Hypertension (~2014) Duodenal ulcer Surgical History Anesthesia History of endoscopy (~2022) History of tonsillectomy (~1989) [place] teeth removed (~1997) Lipoma (~1999) History of knee surgery (~2016) Family History Father Hypertension Gout Mother Rheumatoid arthritis Hyperlipidemia Family/Other Cancer Brother Gout Social History household members: significant other Smoking Status: Former smoker alcohol intake: current Smoking Status: Former smoker (Quit smoking 2023 ) tobacco type: cigarettes alcohol intake frequency: a few times a week Substance Use Type: marijuana Exam Initial Vital Signs Initial Vital Signs: Vital Signs Pulse Rate 105 H 09/10/23 10:35 Blood Pressure 135/87 09/10/23 10:35 Pulse Oximetry 99 09/10/23 10:35 Const General: cooperative and No ill appearing HENKY Head: normal to inspection and normocephalic Resp Effort & Inspection: normal respiratory effort, no cough and tachypneic Auscultation: clear to auscultation bilaterally Cardio Rate: regular rate Rhythm: regular rhythm Skin Other: Patient with a diffuse rash mostly on the upper portion of the body to include urticaria. Neuro General: patient alert, patient awake, patient oriented x3 and moves all extremities Extrem General: capillary refill normal Course Orders Ordered: Famotidine (Famotidine 20 Mg/2 Ml Vial) 20 mg IV NOW [facility] Last Admin: 09/10/23 10:52 Dose: 20 mg Documented By: RB Sodium Chloride (Normal Saline 0.9%) 1,000 mls @ 125 mls/hr IV CONT DANELLE Last Admin: 09/10/23 10:55 Dose: 125 mls/hr Documented By: RB Discontinued Medications Epinephrine HCl (Epinephrine 1 Mg/Ml) 0.5 mg IM NOW ONE Stop: 09/10/23 10:38 Last Admin: 09/10/23 10:52 Dose: 0.5 mg Documented By: RB Methylprednisolone (Methylprednisolone 125 Mg/2 Ml Vial) 125 mg IV NOW ONE Stop: 09/10/23 10:36 Last Admin: 09/10/23 10:52 Dose: 125 mg Documented By: RB Vital Signs Vital signs: Vital Signs - 8 hr 09/10/23 10:35 09/10/23 10:35 09/10/23 10:52 Temperature Pulse Rate 105 H 98 H Respiratory Rate 29 H Blood Pressure 135/87 Pulse Oximetry 99 98 Oxygen Delivery Method 09/10/23 10:52 09/10/23 10:55 09/10/23 11:00 Temperature 98.9 F Pulse Rate 96 H 89 Respiratory Rate 13 26 H Blood Pressure 135/85 135/87 Pulse Oximetry 96 94 Oxygen Delivery Method Room Air 09/10/23 11:00 09/10/23 11:30 09/10/23 11:30 Temperature Pulse Rate 79 Respiratory Rate Blood Pressure 129/64 128/73 Pulse Oximetry 96 Oxygen Delivery Method Room Air 09/10/23 12:00 09/10/23 12:00 09/10/23 12:30 Temperature Pulse Rate 71 Respiratory Rate Blood Pressure 131/66 141/82 H Pulse Oximetry 93 Oxygen Delivery Method 09/10/23 12:30 Temperature Pulse Rate 74 Respiratory Rate Blood Pressure Pulse Oximetry 94 Oxygen Delivery Method Medical Decision Making MDM Narrative Medical decision making narrative: After medications here in the emergency department he had an almost complete resolution of his symptoms. He was observed without return of symptoms. Plan will be to discharge him on steroids for the next couple days. We discussed the use of Benadryl. We will also discharged with a prescription for EpiPen. He was given return precautions and follow-up instructions. He expressed understanding and agreement. Discharge Plan Departure Patient Disposition: Home Clinical Impression: Anaphylactic reaction, Accidental insect sting Instructions: DI for Anaphylaxis, DI for Insect Bites and Stings Activity Restrictions/Additional Instructions: You can take the Benadryl like we discussed. Also recommend that you take the steroids for the next couple days like we discussed as well. Contact your primary provider for follow-up. Return to the emergency department for new or worsening symptoms. Prescriptions: New prednisone 20 mg tablet 20 mg PO DAILY 7 Days Qty: 7 0RF epinephrine [EpiPen 2-Jasen] 0.3 mg/0.3 mL auto-injector 0.3 mg IM Q5-15M PRN (Reason: hypersensitivity reaction) Qty: 2 0RF Rx Instructions: do not exceed 3 doses per episode No Action allopurinol 300 mg tablet 300 mg PO DAILY Qty: 90 3RF colchicine 0.6 mg tablet 0.6 mg PO BID PRN (Reason: Acute gout attack) Qty: 30 0RF lisinopril 20 mg tablet 20 mg PO DAILY 90 Days Qty: 90 3RF omeprazole 20 mg capsule,delayed release(DR/EC) 20 mg PO DAILY Qty: 90 1RF gemfibrozil 600 mg tablet 600 mg PO BID Qty: 180 3RF Referrals: Khadar Morales DO [Primary Care Provider] - Stand Alone Forms: Patient Portal/API
[2023-09-10] MEDS: EPINEPHrine 1 MG/ML 0.5 MG IM (10:52)
[2023-09-10] MEDS: methylPREDNISolone 125 MG/2 ML VIAL IV (10:52)
[2023-09-10] MEDS: FAMOTIDINE 20 MG/2 ML VIAL IV (10:52)
[2023-09-10] MEDS: SODIUM CHLORIDE 0.9% 1,000 ML 125 ML IV (10:55)
== END 2023-09-10 13:31 | disposition home or self-care (01) ==
PROVIDERS: Emergency Provider Emergency Medicine; PCP Family Medicine
DX: T63.441A Toxic effect of venom of bees, accidental (unintentional), initial encounter (principal)
CPT/HCPCS: 36415; 96361; 96372; 96374; 96375; 99284; J0171; J2919

== ENCOUNTER → 2024-01-31 16:21 | Outpatient (CLI) | payer OTHER, SELFPAY ==
[2023-04-06 13:10] VITALS: BMI 28.7
[2024-01-31 16:59] LABS: Add Manual Diff / Slide Review NO; Basophils Absolute Auto 100 /uL (0-100); Basophils Percent Auto 1.3 % (0-2); Eosinophils Absolute Auto 0 /uL (0-450); Eosinophils Percent Auto 0.9 % (2-4); Hematocrit 39.1 % (41-53); Hemoglobin 13.7 g/dL (13.5-17.5); Lymphocytes Absolute Auto 2100 /uL (1100-4500); Lymphocytes Percent Auto 35.2 % (25-40); Mean Corpuscular Hemoglobin 33.3 PG (26-34); Monocytes Absolute Auto 600 /uL (0-900); Monocytes Percent Auto 9.6 % (3-14); Neutrophils Absolute Auto 3100 /uL (1500-7000); Platelet Count 210 X10^3/uL (150-400); Red Blood Cell Count 4.11 X10^6/uL (4.5-5.9); White Blood Cell Count 5.8 X10^3/uL (4.5-11.0)
[2024-01-31 17:33] LABS: HEMOLYSIS < 15 (0-50); Iron 151 ug/dL (49-181)
[2024-01-31 17:34] LABS: Alanine Aminotransferase 132 IU/L (<50); Albumin 4.4 g/dL (3.5-5.0); Albumin Globulin Ratio 1.3 (1.0-2.8); Alkaline Phosphatase 97 U/L (38-126); Aspartate Aminotransferase 124 IU/L (17-59); Blood Urea Nitrogen 13 mg/dL (9-20); Calcium 9.2 mg/dL (8.4-10.2); Carbon Dioxide 21 mmol/L (22-32); Chloride 102 mmol/L (98-107); Cholesterol 205 mg/dL (140-199); Estimated Glomerular Filt Rate > 60 mL/min (>60); Globulin 3.4 g/dL (1.7-4.1); Glucose 98 mg/dL (70-100); HDL Cholesterol 48 mg/dL (40-60); HEMOLYSIS < 15 (0-50); Lipase 148 U/L (23-300); Potassium 3.8 mmol/L (3.4-5.1); Sodium 133 mmol/L (137-145); Total Protein 7.8 g/dL (6.3-8.2)
[2024-01-31 17:35] LABS: Hemoglobin A1C% w Est Avg Glu 5.2 % (4.0-6.0)
[2024-01-31 17:43] LABS: Triglycerides 724 mg/dL (35-150)
[2024-01-31 17:44] LABS: Percent Iron Saturation 44 % (20-50); Total Iron Binding Capacity 341 ug/dL (261-462); Transferrin 297 mg/dL (206-381)
[2024-01-31 18:21] LABS: Vitamin B12 289 pg/mL (239-931)
== END ==
LOC: LAB 16:22
PROVIDERS: PCP Family Medicine; Referring Provider Family Medicine; Visit Provider Family Medicine
DX: E78.1 Pure hyperglyceridemia (principal); I10 Essential (primary) hypertension; K21.9 Gastro-esophageal reflux disease without esophagitis; F10.90 Alcohol use, unspecified, uncomplicated; K85.20 Alcohol induced acute pancreatitis without necrosis or infection; M1A.0720 Idiopathic chronic gout, left ankle and foot, without tophus (tophi)
CPT/HCPCS: 36415; 80053; 80061; 82607; 83036; 83540; 83550; 83690; 84550; 85025

== ENCOUNTER → 2024-02-04 12:12 | Outpatient (CLI) | payer OTHER, SELFPAY ==
[2023-04-06 13:10] VITALS: BMI 28.7
[2024-02-04 12:56] LABS: Alanine Aminotransferase 131 IU/L (<50); Albumin 4.8 g/dL (3.5-5.0); Albumin Globulin Ratio 1.5 (1.0-2.8); Alkaline Phosphatase 104 U/L (38-126); Aspartate Aminotransferase 144 IU/L (17-59); Blood Urea Nitrogen 17 mg/dL (9-20); Calcium 9.3 mg/dL (8.4-10.2); Carbon Dioxide 20 mmol/L (22-32); Chloride 104 mmol/L (98-107); Estimated Glomerular Filt Rate > 60 mL/min (>60); Globulin 3.2 g/dL (1.7-4.1); Glucose 97 mg/dL (70-100); HEMOLYSIS < 15 (0-50); Lipase 177 U/L (23-300); Sodium 137 mmol/L (137-145)
== END ==
PROVIDERS: PCP Family Medicine; Referring Provider Family Medicine; Visit Provider Family Medicine
DX: E78.1 Pure hyperglyceridemia (principal); K85.20 Alcohol induced acute pancreatitis without necrosis or infection; F10.90 Alcohol use, unspecified, uncomplicated; I10 Essential (primary) hypertension; M1A.0720 Idiopathic chronic gout, left ankle and foot, without tophus (tophi)
CPT/HCPCS: 36415; 80053; 83690

== ENCOUNTER → 2024-02-07 08:05 | Outpatient (CLI) | payer OTHER, SELFPAY ==
[2023-04-06 13:10] VITALS: BMI 28.7
--- NOTE | 2024-02-07 08:06 | DI.CT.S_ITS ---
PROCEDURE: CT ABDOMEN W CON INDICATIONS: F/u inflamed pancreas TECHNIQUE: After the administration of intravenous contrast, 5 mm thick sections acquired from the diaphragms to the iliac crests. 5 mm thick coronal and sagittal reformats were acquired. For radiation dose reduction, the following was used: automated exposure control, adjustment of mA and/or kV according to patient size. COMPARISON: [facility], CT, CT ABDOMEN PELVIS W CON, 04/06/2023, 14:11. FINDINGS: Image quality: Diagnostic. Lower Chest: No significant findings. ABDOMEN: Liver: No solid mass. Prominent diffuse fatty infiltration persists. Hepatomegaly also is again noted, with craniocaudad dimension measuring up to 22.1 cm. Gallbladder: No radiopaque gallstones or wall thickening. Biliary ducts: No biliary dilation. Pancreas: No ductal dilation. Previously present prominent peripancreatic edema has resolved without evidence of pancreatic necrosis or peripancreatic pseudocyst formation. Spleen: Size is within normal limits. Adrenal Glands: No adrenal nodules. Kidneys and Ureters: No hydronephrosis. No solid mass. No complex renal cystic lesion which requires follow up. Stomach and Bowel: Normal colonic caliber, without significant wall thickening. Peritoneum: No abnormal intraperitoneal fluid. No free air. Ventral Wall: No hernia. Abdominal Nodes: No retroperitoneal or mesenteric adenopathy by size criteria. Vessels: Aorta and inferior vena cava are normal in size. Bones: No aggressive osseous abnormality. IMPRESSION: Persistent hepatomegaly with pronounced diffuse fatty infiltration throughout the liver. Ascites, varices, or splenomegaly is not found. Resolution of previously present prominent peripancreatic edema without interval development of pancreatic necrosis or pseudocyst formation. Dictated by: Kamron Sanders M.D. on 02/07/2024 at 11:38 Approved by: Kamron Sanders M.D. on 02/07/2024 at 11:41
== END ==
PROVIDERS: PCP Family Medicine; Referring Provider Family Medicine; Visit Provider Family Medicine
DX: K85.20 Alcohol induced acute pancreatitis without necrosis or infection (principal); K76.0 Fatty (change of) liver, not elsewhere classified; E78.1 Pure hyperglyceridemia; F10.90 Alcohol use, unspecified, uncomplicated
CPT/HCPCS: 74160; Q9967

== ENCOUNTER → 2024-04-21 09:40 | Outpatient (CLI) | payer OTHER, SELFPAY ==
[2023-04-06 13:10] VITALS: BMI 28.7
[2024-04-21 10:29] LABS: Alanine Aminotransferase 86 IU/L (<50); Albumin 4.8 g/dL (3.5-5.0); Albumin Globulin Ratio 1.6 (1.0-2.8); Alkaline Phosphatase 77 U/L (38-126); Aspartate Aminotransferase 88 IU/L (17-59); BUN Creatinine Ratio 18.7 (6-22); Bilirubin Total 0.6 mg/dL (0.2-1.3); Blood Urea Nitrogen 14 mg/dL (9-20); Calcium 9.9 mg/dL (8.4-10.2); Carbon Dioxide 21 mmol/L (22-32); Chloride 108 mmol/L (98-107); Cholesterol 254 mg/dL (140-199); Erythrocyte Sedimentation Rate 5 MM/HR (0-15); Estimated Glomerular Filt Rate > 60 mL/min (>60); Glucose 98 mg/dL (70-100); HDL Cholesterol 58 mg/dL (40-60); HEMOLYSIS < 15 (0-50); LDL Cholesterol Calculated 147 mg/dL (<100); Potassium 4.5 mmol/L (3.4-5.1); Sodium 138 mmol/L (137-145); Total Protein 7.8 g/dL (6.3-8.2); Triglycerides 246 mg/dL (35-150); Uric Acid 5.1 mg/dL (3.5-8.5)
[2024-04-21 10:57] LABS: TSH w/ Reflex to FT4 0.77 uIU/mL (0.47-4.68)
== END ==
PROVIDERS: PCP Family Medicine; Referring Provider Family Medicine; Visit Provider Family Medicine
DX: E88.89 Other specified metabolic disorders (principal)
CPT/HCPCS: 36415; 80053; 80061; 84443; 84550; 85651